=== PATIENT | female | born 1950 | race Caucasian/White ===

== ENCOUNTER 2017-06-11 17:57 | Observation (INO) | payer OTHER ==
[~2017-06-11] VITALS: Ht 157.5 cm; Wt 52.0 kg
[~2017-06-11 17:57] MED LIST: ASPEC81 PO; CLON0.5T3 PO; DIGO0.2518 PO; DOUNEB INH; EFFSR75 PO; FAMO20TA11 PO; HYDR200T5 PO; IPRA1AER2 PO; ISOS60TA25 PO; LISI-461 PO; METO50TA7 PO; MONT1TAB3 PO; ROSU40TA PO; ZCR80 PO
--- NOTE | 2017-06-11 18:27 | EMERGENCY ROOM VISIT NOTE ---
History Report prepared by Rayne: Yared Hall Under the Supervision of: Dr. Blane Garza M.D. First contact with patient: 18:03 Chief Complaint: CARDIAC ASSESSMENT Stated Complaint: CHF AND PNEUMONIA History of Present Illness The patient is a 66 year old female who presents to the Emergency Room after a referral from her primary care physician shortly prior to arrival. The patient' s states that she received a call from her PCP today after reviewing her chest x-ray that was taken at a routine check-up earlier today. The x-ray showed pneumonia and congestive heart failure. The patient notes that she has had a fever recently and did experience a short episode of chest pain today. This episode lasted 5-10 minutes before spontaneously resolving. She has been coughing persistently as well. She has a history of triple bypass surgery. She is currently taking Lasix, but has not changed these medications at all recently. Source of History: patient, family, spouse/significant other Onset: [place] prior to arrival Position: chest Quality: other (pneumonia/CHF) Associated Symptoms: + fevers, + cough, + chest pain Review of Systems See HPI for pertinent positives & negatives. A total of 10 systems reviewed and were otherwise negative. Past Medical & Surgical Surgical Problems: (1) H/O: hysterectomy (2) Hx of heart bypass surgery Old medical records were reviewed. Nurse's notes were reviewed and I agree with. Family History Omitted secondary to patient age. Social History Smoking Status: Current Every Day Smoker Alcohol Use: none Drug Use: none Marital Status: Housing Status: lives with family Occupation Status: retired Current/Historical Medications Scheduled Aspirin Enteric Coated (Ecotrin Or Generic), 81 MG PO DAILY Azithromycin (Zithromax Z-Enrique), 1 PKT PO UD Calcium Carbonate (Antacid) (Tums E-X 750), 1 TAB PO PRN Clonazepam (Klonopin), 0.5 TAB PO Q12 Clopidogrel Bisulfate (Clopidogrel), 75 MG PO DAILY Digoxin (Digox), 125 MCG PO DAILY Famotidine (Pepcid), 20 MG PO BID Fenofibrate (Tricor), 54 MG PO DAILY Fish Oil ([place]-3), 1 CAP PO DAILY Furosemide (Lasix), 20 MG PO BID Hydroxychloroquine Sulfate (Hydroxychloroquine Sulfat), 200 MG PO QPM Ipratropium-Albuterol (Combivent Respimat), 2 PUFFS PO TID Isosorbide Mononitrate (Isosorbide Mononitrate ER), 60 MG PO DAILY Lisinopril (Lisinopril), 10 MG PO DAILY Loratadine (Allergy Relief), 10 MG PO DAILY Metoprolol Succinate (Metoprolol Succinate ER), 75 MG PO DAILY Montelukast Sod (Montelukast Sodium), 10 MG PO QPM Rosuvastatin Calcium (Rosuvastatin Calcium), 40 MG PO DAILY Scheduled PRN Hydrocodone/Acetaminophen 10MG/325MG ([place] 10MG/325MG), 1-2 TABS PO Q6 PRN for Pain Ipratropium-Albuterol (Duoneb), 1 TREATMENT INH Q6 PRN for Wheezing Allergies Coded Allergies: Cephalosporins (Verified Allergy, Intermediate, RASH, 06/17/16) Penicillins (Verified Allergy, Mild, 06/17/16) Cephalexin (Verified Allergy, Unknown, HIVES, 06/17/16) Fexofenadine (Verified Allergy, Unknown, SEWLLING, 06/17/16) Prednisone (Verified Allergy, Unknown, SWELLING, 06/17/16) Physical Exam Vital Signs Date Time Temp Pulse Resp B/P (MAP) Pulse Ox O2 Delivery O2 Flow Rate FiO2 06/11/17 21:03 67 22 161/76 97 Room Air 06/11/17 20:12 68 20 125/79 95 Room Air 06/11/17 19:01 135/55 06/11/17 18:57 73 20 95 06/11/17 18:55 95 Room Air 06/11/17 18:53 138/68 06/11/17 18:15 83 06/11/17 17:59 36.8 85 18 130/61 92 Room Air Physical Exam General: Chronically ill appearing older female, NAD. There is an occasional hacking cough on exam. No increased work of breathing. HEENT: Normal cephalic atraumatic. Pupils are equal round and reactive to light. Extraocular movements are intact. Oropharynx is pink with moist mucous membranes. No swelling of the mouth lips or tongue. Neck: Supple with a midline trachea. No meningeal signs or stiffness, no JVD or bruits. No Stridor. Chest: There are crackles bilaterally. No wheezes or rhonchi. No increased work of breathing. Heart: regular rate and rhythm. Abdomen: Soft nontender, nondistended without rebound guarding or rigidity. Extremities: No cyanosis clubbing or edema. No calf tenderness or assymetry Spine/Back. Non tender to palpation. No CVA tenderness Skin: Good turgor without rashes. Neurologic exam: Cranial nerves two through 12 are intact. Motor and sensation are intact and symmetrical throughout. Medical Decision & Procedures ER Provider Diagnostic Interpretation: Radiology results as stated below per my review and radiologist interpretation: CHEST ONE VIEW PORTABLE CLINICAL HISTORY: Atypical chest pain COMPARISON STUDY: 10/11/2009 FINDINGS: The heart is the upper limits of normal in size. There are postsurgical changes of a midline sternotomy. There are hazy right basilar airspace opacities versus overlying breast tissue attenuation. A PA and lateral study might be of benefit in follow-up.[ Surgical clips project over the right upper lung zone. IMPRESSION: Hazy right basilar airspace opacities versus overlying breast tissue attenuation artifact. A PA and lateral study might be of benefit in follow-up. Electronically signed by: Bahman Oconnor M.D. 06/11/2017 6:36 PM Dictated Date/Time: 06/11/2017 6:34 PM Laboratory Results 06/11/17 18:36 Red Blood Count 4.93, Mean Corpuscular Volume 91.5, Mean Corpuscular Hemoglobin 32.0, Mean Corpuscular Hemoglobin Concent 35.0, Mean Platelet Volume 10.7, Neutrophils (%) (Auto) 67.0, Lymphocytes (%) (Auto) 25.8, Monocytes (%) (Auto) 5.7, Eosinophils (%) (Auto) 1.1, Basophils (%) (Auto) 0.4, Neutrophils # (Auto) 5.49, Lymphocytes # (Auto) 2.11, Monocytes # (Auto) 0.47, Eosinophils # (Auto) 0.09, Basophils # (Auto) 0.03 06/11/17 18:36 Test 06/11/17 18:36 06/11/17 18:50 06/11/17 18:51 White Blood Count 8.19 K/uL (4.8-10.8) Red Blood Count 4.93 M/uL (4.2-5.4) Hemoglobin 15.8 g/dL (12.0-16.0) Hematocrit 45.1 % (37-47) Mean Corpuscular Volume 91.5 fL (80-100) Mean Corpuscular Hemoglobin 32.0 pg (25-34) Mean Corpuscular Hemoglobin Concent 35.0 g/dl (32-36) Platelet Count 175 K/uL (130-400) Mean Platelet Volume 10.7 fL (7.4-10.4) Neutrophils (%) (Auto) 67.0 % Lymphocytes (%) (Auto) 25.8 % Monocytes (%) (Auto) 5.7 % Eosinophils (%) (Auto) 1.1 % Basophils (%) (Auto) 0.4 % Neutrophils # (Auto) 5.49 K/uL (1.4-6.5) Lymphocytes # (Auto) 2.11 K/uL (1.2-3.4) Monocytes # (Auto) 0.47 K/uL (0.11-0.59) Eosinophils # (Auto) 0.09 K/uL (0-0.5) Basophils # (Auto) 0.03 K/uL (0-0.2) RDW Standard Deviation 43.1 fL (36.4-46.3) RDW Coefficient of Variation 12.8 % (11.5-14.5) Immature Granulocyte % (Auto) 0.0 % Immature Granulocyte # (Auto) 0.00 K/uL (0.00-0.02) Prothrombin Time 11.3 SECONDS (9.0-12.0) Prothromb Time International Ratio 1.1 (0.9-1.1) Activated Partial Thromboplast Time 26.6 SECONDS (21.0-31.0) Partial Thromboplastin Ratio 1.0 Anion Gap 7.0 mmol/L (3-11) Est Creatinine Clear Calc Drug Dose 35.9 ml/min Estimated GFR () 50.2 Estimated GFR (Non- 43.3 BUN/Creatinine Ratio 13.5 (10-20) Calcium Level 10.1 mg/dl (8.5-10.1) Magnesium Level 2.3 mg/dl (1.8-2.4) Total Bilirubin 0.7 mg/dl (0.2-1) Direct Bilirubin 0.2 mg/dl (0-0.2) Aspartate Amino Transf (AST/SGOT) 13 U/L (15-37) Alanine Aminotransferase (ALT/SGPT) 20 U/L (12-78) Alkaline Phosphatase 70 U/L (45-117) Total Creatine Kinase 52 U/L (26-192) Creatine Kinase MB 0.6 ng/ml (0.5-3.6) Creatine Kinase MB Ratio 1.2 (0-3.0) Troponin I < 0.015 ng/ml (0-0.045) Total Protein 8.0 gm/dl (6.4-8.2) Albumin 4.5 gm/dl (3.4-5.0) Lipase 185 U/L (73-393) Digoxin Level 1.2 ng/ml (0.8-2.0) Bedside Troponin I < 0.030 ng/ml (0-0.045) AO-Cry-K-Type Natriuretic Peptide 354 pg/ml (0-900) Bedside Lactic Acid Venous 0.80 mmol/L (0.90-1.70) Laboratory studies as stated above per my review. Medications Administered Medications (Trade) Dose Ordered Sig/Keri Route Start Time Stop Time Status Last Admin Dose Admin Levofloxacin (Levaquin / D5W) 750 mg NOW STAT IV 06/11/17 19:32 06/11/17 19:33 DC 06/11/17 19:37 750 MG ECG Indication: chest pain Rate (beats per minute): 69 Rhythm: sinus with SA Findings: other (Non-specific Intraventricular delay, Lateral ST changes) Comparison ECG Date: 10/15/2008 Change: no significant change ED Course 1805: Past medical records reviewed. The patient was evaluated in room C5, and a complete history and physical examination were performed. 1931: Ordered Levofloxacin 750 mg IV. 1937: I checked on the patient at this time. She looks well. 1942: I discussed the case with Dr. Carlton [facility] Hospitalist at this time. He will evaluate the patient for further treatment. Medical Decision Differential Diagnosis includes; CHF, pneumonia, acute coronary syndrome, arrhythmia, and pulmonary embolism. This patient comes in as described above. She was placed in room C5. She was sent over by Dr. Oseguera her sightseeing guide after apparently having a chest x- ray in the office yesterday which showed CHF and/or pneumonia. She's been coughing a lot lately on exam besides coughing. she does not appear to be any significant respiratory stress. She has had no fever and she's not hypoxemic. IV access was established and blood work was obtained including blood cultures. Chest x-ray and EKG were also obtained. Chest x-ray does show what appears to be a pneumonia in the right base. The report from yesterday in the doctor's office also showed pneumonia with possibly some CHF superimposed. EKG shows no acute ischemic changes or significant arrhythmia. There are no acute electrolyte or metabolic abnormalities. She has nothing to suggest sepsis at this point. Blood cultures have been obtained. I did give the patient IV Levaquin. I have consulted Dr. Sanchez to see the patient for possible admission given her pneumonia and multiple comorbidities. Medication Reconcilliation Current Medication List: was personally reviewed by me Blood Pressure Screening Patient's blood pressure: Normal blood pressure Blood pressure disposition: Did not require urgent referral Consults Time Called: 1939 Consulting Physician: Dr. Bianka Manjarrez Returned Call: 1942 I discussed the case with Dr. Bianka Manjarrez at this time. He will evaluate the patient for further treatment. Impression Primary Impression: Pneumonia Scribe Attestation The scribe's documentation has been prepared under my direction and personally reviewed by me in its entirety. I confirm that the note above accurately reflects all work, treatment, procedures, and medical decision making performed by me. Departure Information Dispostion Being Evaluated By Hospitalist Referrals No Doctor, Assigned (PCP) Patient Instructions My [facility]
--- NOTE | 2017-06-11 18:37 | DIAGNOSTIC IMAGING REPORT ---
CHEST ONE VIEW PORTABLE CLINICAL HISTORY: Atypical chest pain COMPARISON STUDY: 10/11/2009 FINDINGS: The heart is the upper limits of normal in size. There are postsurgical changes of a midline sternotomy. There are hazy right basilar airspace opacities versus overlying breast tissue attenuation. A PA and lateral study might be of benefit in follow-up.[ Surgical clips project over the right upper lung zone. IMPRESSION: Hazy right basilar airspace opacities versus overlying breast tissue attenuation artifact. A PA and lateral study might be of benefit in follow-up. Electronically signed by: Bahman Oconnor M.D. 06/11/2017 6:36 PM Dictated Date/Time: 06/11/2017 6:34 PM
[2017-06-11] MEDS ORDERED: ASPI81TA21 PO (18:41)
[2017-06-11] MEDS ORDERED: PLQ200 PO (18:41)
[2017-06-11] MEDS ORDERED: HYDR-4079 PO ×2 (18:41→23:05)
[2017-06-11] MEDS ORDERED: IPRASOL4 INH (18:41)
[2017-06-11] MEDS ORDERED: DIGO0.2519 PO (18:41)
[2017-06-11] MEDS ORDERED: AZITTAB PO (18:42)
[2017-06-11] MEDS ORDERED: TPRSR/50 PO (18:42)
[2017-06-11] MEDS ORDERED: LORA-339 PO (18:42)
[2017-06-11] MEDS ORDERED: PLV75 PO (18:42)
[2017-06-11] MEDS ORDERED: ALEN70TA4 PO (18:42)
[2017-06-11] MEDS ORDERED: SNG10 PO (18:42)
[2017-06-11] MEDS ORDERED: LSX20 PO (18:42)
[2017-06-11] MEDS ORDERED: FENO54TA PO (18:42)
[2017-06-11] MEDS ORDERED: ISOS-10 PO (18:42)
[2017-06-11] MEDS ORDERED: LISI-461 PO (18:42)
[2017-06-11] MEDS ORDERED: FAMO1TAB47 PO (18:42)
[2017-06-11] MEDS ORDERED: ROSU40TA18 PO (18:42)
[2017-06-11 19:05] LABS: BASO % 0.4 %; BASO ABS # 0.03 K/uL (0-0.2); COMPLETE YES; EOS % 1.1 %; HEMATOCRIT 45.1 % (37-47); LYMPH % 25.8 %; LYMPH ABS # 2.11 K/uL (1.2-3.4); MEAN CELL VOLUME 91.5 fL (80-100); MEAN PLATELET VOLUME 10.7 fL (7.4-10.4); MONO % 5.7 %; PLATELET COUNT 175 K/uL (130-400); RED BLOOD COUNT 4.93 M/uL (4.2-5.4); WHITE BLOOD COUNT 8.19 K/uL (4.8-10.8)
[2017-06-11 19:08] LABS: POINT OF CARE PRO-BNP 354 pg/ml (0-900); POINT OF CARE TROPONIN I < 0.030 ng/ml (0-0.045)
[2017-06-11 19:08] LABS: INR 1.1 (0.9-1.1); PROTHROMBIN TIME (PATIENT) 11.3 SECONDS (9.0-12.0)
[2017-06-11 19:14] LABS: ALT/SGPT 20 U/L (12-78); AST/SGOT 13 U/L (15-37); BLOOD UREA NITROGEN 18 mg/dl (7-18); BUN/CREATININE RATIO 13.5 (10-20); CALCIUM 10.1 mg/dl (8.5-10.1); CARBON DIOXIDE 27 mmol/L (21-32); CHLORIDE 104 mmol/L (98-107); GLUCOSE 98 mg/dl (70-99); POTASSIUM 4.1 mmol/L (3.5-5.1); SODIUM 138 mmol/L (136-145)
[2017-06-11 19:19] LABS: ALKALINE PHOSPHATASE 70 U/L (45-117); CKMB/CK RATIO 1.2 (0-3.0)
[2017-06-11] MEDS ORDERED: LEVAQUIN 750MG / 150ML D5W IV STA (19:32)
[2017-06-11 20:33] LABS: MAGNESIUM 2.3 mg/dl (1.8-2.4)
[2017-06-11] MEDS ORDERED: HYDROCODONE/ACETAMI 10/325 TAB PO PRN (22:30)
[2017-06-11] MEDS ORDERED: ACETAMINOPHEN 325 MG TAB PO PRN (22:30)
[2017-06-11] MEDS ORDERED: ALBUT/IPRATROP 3MG/0.5MG NEB 3 ML VIAL INH PRN (22:30)
[2017-06-11 22:35] VITALS: O2SAT 96; Ht 157.5 cm; Wt 52.0 kg
[2017-06-11] MEDS ORDERED: SODIUM CHLORIDE 0.9% 500ML 500 ML IV ONE (23:00)
[2017-06-11] MEDS ORDERED: CLOP1TAB15 PO (23:05)
[2017-06-11] MEDS ORDERED: CALC1CHW43 PO (23:05)
[2017-06-11] MEDS ORDERED: FURO-85 PO (23:05)
[2017-06-11] MEDS ORDERED: OMEG10007 PO (23:05)
[2017-06-11 23:35] VITALS: BP 137/76; PULSE 75; TEMP 36.7; O2SAT 95
[2017-06-11] MEDS: CLONAZEPAM 0.5 MG TAB PO SCH (23:57)
[2017-06-12] MEDS ORDERED: IV FLUIDS COMPLETED PRN (04:15)
--- NOTE | 2017-06-12 05:27 | HISTORY & PHYSICAL EXAMINATION ---
DATE OF ADMISSION: 06/11/2017 PRIMARY CARE DOCTOR: Bessy Mclean PA-C. CHIEF COMPLAINT: Abnormal x-ray, sent by doctor. HISTORY OF PRESENT ILLNESS: History obtained from patient and records. Medical history significant for chronic systolic heart failure secondary to ischemic cardiomyopathy, EF of 35-40% from a 2D echo last July 2012, PVD status post surgery, coronary artery disease status post CABG, history of AVR, history of CVA, PSVT as per records, hypertension, hyperlipidemia, rheumatoid arthritis as per records, COPD, ongoing tobacco abuse, Recent confinement last October 2008 for COPD exacerbation. [place] [facility] [place] for productive cough, nasal congestion. Sick grandchild. Patient denies aspiration. No unusual fluid retention or weight gain. Good appetite. Impression was complicated, bronchitis versus community acquired pneumonia. Patient prescribed azithromycin, improved cough symptoms. Chest x-ray done outpatient. Chest x-ray officially read as pneumonia, right lung base, tiny bilateral pleural effusions, mild interstitial edema today. Patient sent to the Emergency Room by correctional treatment specialist's office. At the ER, the patient received Levaquin. MEDICAL HISTORY: As above. SURGERIES: Vascular procedures, CABG, AVR, cholecystectomy, hysterectomy. HOME MEDICATIONS: Include azithromycin, aspirin, Tums, Klonopin, Plavix, digoxin, Tricor, Lasix, Pepcid, Vicodin, hydroxychloroquine, DuoNebs, Combivent, isosorbide mononitrate, loratadine, lisinopril, metoprolol, montelukast, rosuvastatin. ALLERGIES: CEPHALEXIN, PREDNISONE, FEXOFENADINE, CEPHALOSPORIN, PENICILLIN. FAMILY HISTORY: Diabetes, heart disease. PERSONAL AND SOCIAL HISTORY: Ongoing tobacco abuse, 6 cigarettes a day, no chronic intake of alcoholic beverages. REVIEW OF SYSTEMS: As per HPI, all other ROS negative. PHYSICAL EXAMINATION: VITAL SIGNS: Blood pressure noted to be 135/67, pulse rate 89, RR 20, temperature 36.7, sats 95 on room air. GENERAL: Noted to be pleasant, no respiratory distress, dysarthric. SKIN: Normal color. HEENT: [place] palpebral conjunctivae. Dry mucosa. NECK: No JVD. Supple. CHEST: Decreased breath sounds. HEART: RRR ABDOMEN: Soft. EXTREMITIES: No edema, no tenderness. NEUROLOGIC: No gross focality except dysarthria. LABS: Hemoglobin was noted to be 15.8, hematocrit 45.1, white blood cells 8.19, platelets 175. Sodium 138, potassium 4.1, chloride 27, BUN 18, creatinine 1.3, glucose was noted to be 98. Chest x-ray, hazy right basilar airspace opacity. EKG as per my interpretation 70, normal sinus rhythm, some downsloping ST depression in lateral leads, QTc 400. ASSESSMENT: 1. Acute renal failure possibly secondary to meds, respiratory illness. 2. Community-acquired pneumonia left, no sepsis improved on outpatient azithromycin course. 3. Chronic obstructive pulmonary disease, ongoing tobacco use. No evidence of exacerbation. 4. Chronic systolic heart failure secondary to ischemic cardiomyopathy, EF of 35 -40%. Patient slightly on the dry side. 5. History of peripheral vascular disease, status post surgery. 6. hx aortic valve replacement. 7. History rheumatoid arthritis, stable on Plaquenil. PLAN: Observation GMF baseline UA, monitor creatinine response to gentle IV hydration. Appropriate to hold GIN inhibitor, home diuretics for now until creatinine at baseline. C Complete home Z-Enrique prescribed by patient's correctional treatment specialist outpatient. Nicotine patch. PT, OT eval. Home in the morning if kidney function improved and patient comfortable. DVT prophylaxis. Heparin subQ. DNR. MTDD
[2017-06-12] MEDS ORDERED: HEPARIN SOD 5000 UNIT/0.5 ML CARP SQ SCH (06:00)
[2017-06-12 06:06] LABS: BASO % 0.6 %; BASO ABS # 0.06 K/uL (0-0.2); COMPLETE YES; EOS % 0.8 %; HEMATOCRIT 42.2 % (37-47); IG% 0.3 %; MEAN CELL VOLUME 92.7 fL (80-100); MEAN CORPUSCULAR HEMOGLOBIN 32.5 pg (25-34); MEAN CORPUSCULAR HGB CONC 35.1 g/dl (32-36); MEAN PLATELET VOLUME 11.1 fL (7.4-10.4); MONO % 10.1 %; NEUT % 64.2 %; PLATELET COUNT 145 K/uL (130-400); RED BLOOD COUNT 4.55 M/uL (4.2-5.4); WHITE BLOOD COUNT 9.58 K/uL (4.8-10.8)
[2017-06-12 06:38] LABS: BUN/CREATININE RATIO 12.7 (10-20); CALCIUM 9.6 mg/dl (8.5-10.1); CREATININE 1.1 mg/dl (0.60-1.20); POTASSIUM 4.1 mmol/L (3.5-5.1)
[2017-06-12 07:01] VITALS: BP 130/75; PULSE 67; TEMP 37; O2SAT 98
[2017-06-12] MEDS ORDERED: ROSUVASTATIN CALCIUM 20 MG TAB PO SCH (08:00)
[2017-06-12] MEDS ORDERED: FAMOTIDINE 20 MG TAB PO SCH (08:00)
[2017-06-12] MEDS: CLONAZEPAM 0.5 MG TAB PO SCH (08:42)
[2017-06-12] MEDS ORDERED: NICOTINE 7 MG/24 HR TDSY TD SCH (09:00)
[2017-06-12] MEDS ORDERED: FENOFIBRATE 48 MG TAB PO SCH (09:00)
[2017-06-12] MEDS ORDERED: IPRATROPIUM BROMIDE/ALBUTEROL respimat INH INH SCH (09:00)
[2017-06-12] MEDS ORDERED: ISOSORBIDE MONONITRATE 60 MG TABCR PO SCH (09:00)
[2017-06-12] MEDS ORDERED: METOPROLOL SUCC 25MG EXT REL TAB PO SCH (09:00)
[2017-06-12] MEDS ORDERED: CLOPIDOGREL BISULFATE 75 MG TAB PO SCH (09:00)
[2017-06-12] MEDS ORDERED: ASPIRIN 81 MG ECTAB PO SCH (09:00)
[2017-06-12] MEDS ORDERED: AZITHROMYCIN 250 MG TAB PO SCH (09:00)
[2017-06-12] MEDS ORDERED: ENOXAPARIN 30 MG/0.3 ML SYR SQ SCH (09:00)
[2017-06-12 10:55] LABS: URINE APPEARANCE CLEAR (CLEAR); URINE BILIRUBIN NEG (NEG); URINE COLOR YELLOW; URINE NITRITE NEG (NEG); URINE SPECIFIC GRAVITY 1.011 (1.000-1.030); UROBILINOGEN NEG (NEG); ZZUR CULT IF INDIC CLEAN CATCH NO
[2017-06-12 11:02] LABS: MANUAL MICROSCOPIC REQUIRED? NO; REVIEW REQ? NO
--- NOTE | 2017-06-12 11:32 | Progress Note ---
Internal Med Progress Note Date of Service: Jun 12, 2017. Provider Documentation: SUBJECTIVE: Seen and examined at bedside. States having only mild intermittent cough. Eager to get discharged Denies chest pain, SOB. No signs of fluid overload Also denies any urinary symptoms Afebrile, Saturating 98% on RA OBJECTIVE: Vital Signs-as noted below Physical Exam: General Appearance:Moderately built and nourished, no apparent distress Head: normocephalic, Atraumatic Eyes: normal inspection, EOMI, PERRL Neck: supple, Trachea midline Respiratory/Chest: Decreased breath sounds on right lower base, CTA Cardiovascular: S1, S2, No murmur Abdomen/GI:Soft, Non tender, Bowel sounds present Extremities/Musculoskelatal:normal inspection, no edema Neurologic/Psych:grossly no focal neurological deficits Skin: normal color, warm Lab data as noted below. ASSESSMENT & PLAN: Acute renal failure Cr levels back to baseline S/P IV fluids Lisinopril and lasix held during hospitalization monitor renal function Community-acquired pneumonia No signs of sepsis Saturating well on RA Denies SOB, chest pain Clinically improving with Z-pack Blood cultures pending Chronic obstructive pulmonary disease, ongoing tobacco use. No signs of exacerbation continue home inhalers Nicotine patch. Chronic systolic heart failure secondary to ischemic cardiomyopathy, EF of 35-40 %. No signs of volume overload clinically looks dry H/O peripheral vascular disease, status post surgery. Continue ASA, Plavix H/O Aortic valve replacement. Stable Follow with your sign writer hand as outpatient DVT Px: Heparin SQ Code Status: DNR Disposition: PT/OT ordered Patient refuses to wait for PT/OT evals and prefers to be discharged home ( Family agrees with the plan) Follow up with your primary care physician Bessy Mclean PA-C in 1 week as advised Follow up with your sign writer hand in 1 week (Patient reports she already has an appointment) Complete the antibiotic course as prescribed by her sign writer hand Seek immediate medical attention if your symptoms reoccur or worsen Get blood test (basic metabolic panel) checked on 06/14/17 and follow up wit your doctor with results Vital Signs: Date Time Temp Pulse Resp B/P (MAP) Pulse Ox O2 Delivery O2 Flow Rate FiO2 06/12/17 08:00 Room Air 06/12/17 07:01 37.0 67 20 130/75 (93) 98 Room Air 8/5/17 00:00 Room Air 06/11/17 23:35 36.7 75 20 137/76 (96) 95 Room Air 06/11/17 22:35 96 Room Air 06/11/17 22:14 68 22 139/76 96 06/11/17 21:03 67 22 161/76 97 Room Air 06/11/17 20:12 68 20 125/79 95 Room Air 06/11/17 19:01 135/55 06/11/17 18:57 73 20 95 06/11/17 18:55 95 Room Air 06/11/17 18:53 138/68 06/11/17 18:15 83 06/11/17 17:59 36.8 85 18 130/61 92 Room Air Lab Results: Results Past 24 Hours Test 06/11/17 18:12 06/11/17 18:36 06/11/17 18:50 06/11/17 18:51 Range/Units Creatine Kinase MB Ratio 1.2 0-3.0 White Blood Count 8.19 4.8-10.8 K/uL Red Blood Count 4.93 4.2-5.4 M/uL Hemoglobin 15.8 12.0-16.0 g/dL Hematocrit 45.1 37-47 % Mean Corpuscular Volume 91.5 80-100 fL Mean Corpuscular Hemoglobin 32.0 25-34 pg Mean Corpuscular Hemoglobin Concent 35.0 32-36 g/dl Platelet Count 175 130-400 K/uL Mean Platelet Volume 10.7 7.4-10.4 fL Neutrophils (%) (Auto) 67.0 % Lymphocytes (%) (Auto) 25.8 % Monocytes (%) (Auto) 5.7 % Eosinophils (%) (Auto) 1.1 % Basophils (%) (Auto) 0.4 % Neutrophils # (Auto) 5.49 1.4-6.5 K/uL Lymphocytes # (Auto) 2.11 1.2-3.4 K/uL Monocytes # (Auto) 0.47 0.11-0.59 K/uL Eosinophils # (Auto) 0.09 0-0.5 K/uL Basophils # (Auto) 0.03 0-0.2 K/uL RDW Standard Deviation 43.1 36.4-46.3 fL RDW Coefficient of Variation 12.8 11.5-14.5 % Immature Granulocyte % (Auto) 0.0 % Immature Granulocyte # (Auto) 0.00 0.00-0.02 K/uL Prothrombin Time 11.3 9.0-12.0 SECONDS Prothromb Time International Ratio 1.1 0.9-1.1 Activated Partial Thromboplast Time 26.6 21.0-31.0 SECONDS Partial Thromboplastin Ratio 1.0 Sodium Level 138 136-145 mmol/L Potassium Level 4.1 3.5-5.1 mmol/L Chloride Level 104 98-107 mmol/L Carbon Dioxide Level 27 21-32 mmol/L Anion Gap 7.0 3-11 mmol/L Blood Urea Nitrogen 18 7-18 mg/dl Creatinine 1.30 0.60-1.20 mg/dl Est Creatinine Clear Calc Drug Dose 35.9 ml/min Estimated GFR () 50.2 Estimated GFR (Non- 43.3 BUN/Creatinine Ratio 13.5 10-20 Random Glucose 98 70-99 mg/dl Calcium Level 10.1 8.5-10.1 mg/dl Magnesium Level 2.3 1.8-2.4 mg/dl Total Bilirubin 0.7 0.2-1 mg/dl Direct Bilirubin 0.2 0-0.2 mg/dl Aspartate Amino Transf (AST/SGOT) 13 15-37 U/L Alanine Aminotransferase (ALT/SGPT) 20 12-78 U/L Alkaline Phosphatase 70 45-117 U/L Total Creatine Kinase 52 26-192 U/L Creatine Kinase MB 0.6 0.5-3.6 ng/ml Troponin I < 0.015 0-0.045 ng/ml Total Protein 8.0 6.4-8.2 gm/dl Albumin 4.5 3.4-5.0 gm/dl Lipase 185 73-393 U/L Digoxin Level 1.2 0.8-2.0 ng/ml Bedside Troponin I < 0.030 0-0.045 ng/ml YF-Xub-[id number]-Type Natriuretic Peptide 354 0-900 pg/ml Bedside Lactic Acid Venous 0.80 0.90-1.70 mmol/L Test 06/12/17 05:06 06/12/17 10:40 Range/Units White Blood Count 9.58 4.8-10.8 K/uL Red Blood Count 4.55 4.2-5.4 M/uL Hemoglobin 14.8 12.0-16.0 g/dL Hematocrit 42.2 37-47 % Mean Corpuscular Volume 92.7 80-100 fL Mean Corpuscular Hemoglobin 32.5 25-34 pg Mean Corpuscular Hemoglobin Concent 35.1 32-36 g/dl Platelet Count 145 130-400 K/uL Mean Platelet Volume 11.1 7.4-10.4 fL Neutrophils (%) (Auto) 64.2 % Lymphocytes (%) (Auto) 24.0 % Monocytes (%) (Auto) 10.1 % Eosinophils (%) (Auto) 0.8 % Basophils (%) (Auto) 0.6 % Neutrophils # (Auto) 6.14 1.4-6.5 K/uL Lymphocytes # (Auto) 2.30 1.2-3.4 K/uL Monocytes # (Auto) 0.97 0.11-0.59 K/uL Eosinophils # (Auto) 0.08 0-0.5 K/uL Basophils # (Auto) 0.06 0-0.2 K/uL RDW Standard Deviation 43.9 36.4-46.3 fL RDW Coefficient of Variation 12.9 11.5-14.5 % Immature Granulocyte % (Auto) 0.3 % Immature Granulocyte # (Auto) 0.03 0.00-0.02 K/uL Sodium Level 144 136-145 mmol/L Potassium Level 4.1 3.5-5.1 mmol/L Chloride Level 111 98-107 mmol/L Carbon Dioxide Level 27 21-32 mmol/L Anion Gap 6.0 3-11 mmol/L Blood Urea Nitrogen 14 7-18 mg/dl Creatinine 1.10 0.60-1.20 mg/dl Est Creatinine Clear Calc Drug Dose 40.9 ml/min Estimated GFR () 61.4 Estimated GFR (Non- 53.0 BUN/Creatinine Ratio 12.7 10-20 Random Glucose 97 70-99 mg/dl Calcium Level 9.6 8.5-10.1 mg/dl Urine Color YELLOW Urine Appearance CLEAR CLEAR Urine pH 8.0 4.5-7.5 Urine Specific [place] 1.011 1.000-1.030 Urine Protein NEG NEG Urine Glucose (UA) NEG NEG Urine Ketones NEG NEG Urine Occult Blood NEG NEG Urine Nitrite NEG NEG Urine Bilirubin NEG NEG Urine Urobilinogen NEG NEG Urine Leukocyte Esterase NEG NEG Microbiology Results 06/11/17 Blood Culture, Received Pending 06/11/17 Blood Culture, Received Pending
--- NOTE | 2017-06-12 12:16 | Discharge Summary ---
Discharge Summary Date of Service Jun 12, 2017. Discharge Summary Admission Date: Jun 11, 2017 at 21:56 Discharge Date: Jun 12, 2017 Discharge Disposition: Home Principal Diagnosis: ARF, CAP Procedures: CXR: Hazy right basilar airspace opacities versus overlying breast tissue attenuation artifact. A PA and lateral study might be of benefit in follow-up. Consultations: None Pending Studies/Follow-Up: Follow up with your primary care physician Bessy Mclean PA-C in 1 week as advised Follow up with your card feeder in 1 week Complete the antibiotic course as prescribed by her card feeder Seek immediate medical attention if your symptoms reoccur or worsen Get blood test (basic metabolic panel) checked on 06/14/17 and follow up wit your doctor with results Your blood cultures are pending at time of discharge. Follow up wit your doctor regarding results Medication Reconciliation Continued Medications: Aspirin Enteric Coated (Ecotrin Or Generic) 81 Mg Tab 81 MG PO DAILY, TAB Azithromycin (Zithromax Z-Enrique) 250 Mg Tab 1 PKT PO UD for 5 Days, #6 TAB Calcium Carbonate (Antacid) (Tums E-X 750) 750 Mg Chw 1 TAB PO PRN Clonazepam (Klonopin) 0.5 Mg Tab 0.5 TAB PO Q12 Clopidogrel Bisulfate (Clopidogrel) 75 Mg Tab 75 MG PO DAILY, #30 Digoxin (Digox) 250 Mcg Tab 125 MCG PO DAILY, #15 Famotidine (Pepcid) 20 Mg Tab 20 MG PO BID Fenofibrate (Tricor) 54 Mg Tab 54 MG PO DAILY, #30 Fish Oil ([place]ctor-3) 1 Ea Cap 1 CAP PO DAILY, CAP Furosemide (Lasix) 20 Mg Tab 20 MG PO BID, TAB Hydrocodone/Acetaminophen 10MG/325MG ([place] 10MG/325MG) Tab 1-2 TABS PO Q6 PRN for Pain, TAB PRN PAIN Hydroxychloroquine Sulfate (Hydroxychloroquine Sulfat) 200 Mg Tab 200 MG PO QPM, #30 Ipratropium-Albuterol (Combivent Respimat) 1 Aer Aer 2 PUFFS PO TID, #4 Ipratropium-Albuterol (Duoneb) 3 Ml Nebu 1 TREATMENT INH Q6 PRN for Wheezing, INHA Isosorbide Mononitrate (Isosorbide Mononitrate ER) 60 Mg Tabcr 60 MG PO DAILY, #30 Lisinopril (Lisinopril) 10 Mg Tab 10 MG PO DAILY, #30 Loratadine (Allergy Relief) 10 Mg Tab 10 MG PO DAILY, #30 Metoprolol Succinate (Metoprolol Succinate ER) 50 Mg Tabcr 75 MG PO DAILY, #45 Montelukast Sod (Montelukast Sodium) 10 Mg Tab 10 MG PO QPM, #30 Rosuvastatin Calcium (Rosuvastatin Calcium) 40 Mg Tab 40 MG PO DAILY, #30 Admission Information HPI (per Admitting provider): CHIEF COMPLAINT: Abnormal x-ray sent by doctor. HISTORY OF PRESENT ILLNESS: History obtained from patient records. Medical history significant for chronic systolic heart failure secondary to ischemic cardiomyopathy, EF of 30-35% from a 2D echo last July 2012, TAA status post surgery, coronary artery disease status post CABG, history of AVR, history of CVA, PVD, hypertension, hyperlipidemia, rheumatoid arthritis as per records, PSVT, ongoing tobacco abuse, COPD. Recent confinement last October 2008 for COPD exacerbation. The patient seen by card feeder yesterday for productive cough, nasal congestion. ____ was complicated, bronchitis versus community acquired pneumonia. Chest x-ray requested outpatient. The patient prescribed azithromycin, improved cough symptoms. Good appetite. Chest x-ray officially read as pneumonia, right lung base. The patient denies aspiration. Tiny bilateral pleural effusions, mild interstitial edema. The patient sent to the Emergency Room, the patient received Levaquin. No unusual weight gain as per patient. Physical Exam (per Admitting): PHYSICAL EXAMINATION: VITAL SIGNS: Blood pressure noted to be 135/67, pulse rate ____, RR 20, temperature 36.7, sats 95 on room air. GENERAL: Noted to be pleasant, no respiratory distress, dysarthric. SKIN: Normal color. HEENT: [place] palpebral conjunctivae. Dry mucosa. NECK: No JVD. Supple. CHEST: Decreased breath sounds. HEART: Diminished S1, S2. ABDOMEN: Soft. EXTREMITIES: No edema, no tenderness. NEUROLOGIC: No gross focality except dysarthria. Hospital Course Acute renal failure Cr levels back to baseline S/P IV fluids Lisinopril and lasix held during hospitalization monitor renal function Community-acquired pneumonia No signs of sepsis Saturating well on RA Denies SOB, chest pain Clinically improving with Z-pack Blood cultures pending Chronic obstructive pulmonary disease, ongoing tobacco use. No signs of exacerbation continue home inhalers Nicotine patch. Chronic systolic heart failure secondary to ischemic cardiomyopathy, EF of 35-40 %. No signs of volume overload clinically looks dry H/O peripheral vascular disease, status post surgery. Continue ASA, Plavix H/O Aortic valve replacement. Stable Follow with your card feeder as outpatient DVT Px: Heparin SQ Code Status: DNR Disposition: PT/OT ordered Patient refuses to wait for PT/OT evals and prefers to be discharged home ( Family agrees with the plan) Follow up with your primary care physician Bessy Mclean PA-C in 1 week as advised Follow up with your card feeder in 1 week (Patient reports she already has an appointment) Complete the antibiotic course as prescribed by her card feeder Seek immediate medical attention if your symptoms reoccur or worsen Get blood test (basic metabolic panel) checked on 06/14/17 and follow up wit your doctor with results Total time spent on discharge = This includes examination of the patient, discharge planning, medication reconciliation, and communication with other providers. Discharge Instructions Discharge Instructions Date of Service Jun 12, 2017. Admission Reason for Admission: ARF Discharge Discharge Diagnosis / Problem: ARF, CAP Discharge Goals Goal(s): Decrease discomfort, Improve function Activity Recommendations Activity Limitations: resume your previous activity Exercise/Sports Limitations: as tolerated . Instructions / Follow-Up Instructions / Follow-Up Follow up with your primary care physician Bessy Mclean PA-C in 1 week as advised Follow up with your card feeder in 1 week Complete the antibiotic course as prescribed by her card feeder Seek immediate medical attention if your symptoms reoccur or worsen Get blood test (basic metabolic panel) checked on 06/14/17 and follow up wit your doctor with results Your blood cultures are pending at time of discharge. Follow up wit your doctor regarding results Current Hospital Diet Patient's current hospital diet: AHA Diet (Heart Healthy) Discharge Diet Recommended Diet: AHA Diet (Heart Healthy) Pending Studies Studies pending at discharge: yes List of pending studies: Blood cultres Medical Emergencies . Who to Call and When: Medical Emergencies: If at any time you feel your situation is an emergency, please call 911 immediately. . Non-Emergent Contact Non-Emergency issues call your: Primary Care Provider, Booking Manager Call Non-Emergent contact if: you have a fever, your pain is not controlled, your pain is worsening, your pain is unusual for you, you have any medication questions If your cough is worsening. If your develop chest pain, shortness of breath, fever . . "Provider Documentation" section prepared by Josep Brink. . VTE Core Measure Inpt VTE Proph given/why not?: Unfractionated heparin SQ
[2017-06-12 12:48] VITALS: BP 130/75; PULSE 67; TEMP 37; O2SAT 98
[2017-06-12] MEDS ORDERED: DIGOXIN 0.25 MG TAB PO SCH (16:00)
[2017-06-12] MEDS ORDERED: HYDROXYCHLOROQUINE SULFATE 200 MG TAB PO SCH (21:00)
[2017-06-12] MEDS ORDERED: MONTELUKAST SOD 10 MG TAB PO SCH (21:00)
== END 2017-06-12 13:10 | disposition home or self-care (01) ==
LOC: C.EDB 17:59 → C.4E 21:56 → ENRESERV 22:03
PROVIDERS: ADMIT Internal Medicine; ATTEND Internal Medicine
DX: J96.00 Acute respiratory failure, unspecified whether with hypoxia or hypercapnia (principal); J18.9 Pneumonia, unspecified organism; I25.10 Atherosclerotic heart disease of native coronary artery without angina pectoris; I47.1 Supraventricular tachycardia; I11.0 Hypertensive heart disease with heart failure; I50.22 Chronic systolic (congestive) heart failure; I25.5 Ischemic cardiomyopathy; E78.5 Hyperlipidemia, unspecified; J44.9 Chronic obstructive pulmonary disease, unspecified; I73.9 Peripheral vascular disease, unspecified; M06.9 Rheumatoid arthritis, unspecified; F17.210 Nicotine dependence, cigarettes, uncomplicated; Z86.73 Personal history of transient ischemic attack (TIA), and cerebral infarction without residual deficits; Z95.1 Presence of aortocoronary bypass graft; Z95.2 Presence of prosthetic heart valve; Z79.02 Long term (current) use of antithrombotics/antiplatelets; Z79.82 Long term (current) use of aspirin; Z79.899 Other long term (current) drug therapy

== ENCOUNTER 2020-12-15 10:51 | Inpatient (IN) ==
--- OUTSIDE RECORDS SUMMARY | 2020-12-15 10:53 | External Medical Summary | Continuity of Care Document ---
:1950 Author Name Mina Valentino Address Unavailable Unavailable , Care Team Providers Name Role Phone Hardeep CID Unavailable [email or web address] PCP, NO Unavailable Unavailable Problems Active medical history not documented Allergies and Adverse Reactions Allergy history not documented Medications Medications not documented Procedures Procedures not documented Immunizations Immunizations not documented Plan of Treatment Planned Observations Planned Goals not documented Results No Known Results Results not documented
--- OUTSIDE RECORDS SUMMARY | 2020-12-15 10:53 | External Medical Summary | Continuity of Care Document ---
:1950 Author Name Mina Valentino Address Unavailable Unavailable , Care Team Providers Name Role Phone Hardeep CID Unavailable [email or web address] PCP, NO Unavailable Unavailable Problems Active medical history not documented Allergies and Adverse Reactions Allergy history not documented Medications Medications not documented Procedures Procedures not documented Immunizations Immunizations not documented Plan of Treatment Planned Observations Planned Goals not documented Results No Known Results Results not documented
[2020-12-15] MEDS ORDERED: SODIUM CHLORIDE 0.9% 1000ML 1,000 ML IV STA (11:28)
[2020-12-15 11:58] LABS: Basophils # (auto) 0.01 K/uL (0-0.2); Basophils % (auto) 0.1 %; Hematocrit (blood only) 48.4 % (37-47); Hemoglobin 16.4 g/dL (12.0-16.0); Immature Granulocytes # (auto) 0.04 K/uL (0.00-0.02); Immature Granulocytes % (auto) 0.4 %; Lymphocytes % (auto) 12.2 %; Mean Corpuscular Hemoglobin 31.7 pg (25-34); Mean Corpuscular Hgb Conc 33.9 g/dL (32-36); Mean Corpuscular Volume 93.4 fL (80-100); Mean Platelet Volume 11.7 fL (7.4-10.4); Monocytes # (auto) 1.04 K/uL (0.11-0.59); Monocytes % (auto) 9.8 %; Neutrophils # (auto) 8.27 K/uL (1.4-6.5); Neutrophils % (auto) 77.5 %; Nucleated RBC # (auto) 0.03 K/uL (0-0); Nucleated RBC % (auto) 0.3 %; Platelet Count 168 K/uL (130-400); RDW Coefficient of Variation 15.3 % (11.5-14.5); RDW Standard Deviation 51.3 fL (36.4-46.3); Red Blood Count 5.18 M/uL (4.2-5.4); White Blood Count 10.66 K/uL (4.8-10.8)
--- NOTE | 2020-12-15 11:58 | XRay Report ---
XR chest 1V portable HISTORY: 70 years-old Female Dyspnea acute shortness of breath COMPARISON: Chest radiograph 06/11/2017 TECHNIQUE: Portable AP view of the chest FINDINGS: Cardiac silhouette is enlarged. Pulmonary vascular congestion with interstitial coarsening. Prior med saranya sternotomy. Surgical clips project over the mediastinum and right upper chest. Trace pleural effu sions. No pneumothorax. Mild bibasilar opacities. Degenerative changes of the shoulders and spine. IMPRESSION: 1. Cardiomegaly with pulmonary edema. 2. Trace pleural effusions with bibasilar opacities suggestive of atelectasis versus pneumonitis. ACT 112: Negative or not required by law. The above report was generated using voice recognition software. It may contain grammatical, syntax o r spelling errors. Electronically signed by: Jaden Collier M.D. 12/15/2020 11:57 AM
[2020-12-15 12:08] LABS: INR 1.7 (0.9-1.1); Partial Thromboplastin Time 25.2 Seconds (21.0-31.0); Prothrombin Time 16.4 Seconds (9.0-12.0)
[2020-12-15 12:15] LABS: Alanine Aminotransferase 31 U/L (12-78); Albumin Level 3.3 gm/dl (3.4-5.0); Aspartate Aminotransferase 18 U/L (15-37); BUN Creatinine Ratio 19.1 (10-20); Blood Urea Nitrogen 27 mg/dl (7-18); Carbon Dioxide 22 mmol/L (21-32); Chloride 106 mmol/L (98-107); Creatinine Clr Calc Pharmacy 30.2 ml/min; Est GFR (African American) 44.3; Est GFR (Non-African American) 38.2; Glucose 178 mg/dl (70-99); Potassium 3.8 mmol/L (3.5-5.1); Sodium 141 mmol/L (136-145)
[2020-12-15 12:23] LABS: Alkaline Phosphatase 91 U/L (45-117); Globulin 3.3 gm/dl (2.5-4.0); NT Pro B Type Natriuretic Pept > 35000 pg/ml (0-900); Total Protein 6.6 gm/dl (6.4-8.2); Troponin I 0.051 ng/ml (0-0.045)
[2020-12-15 12:43] LABS: Influenza A virus by PCR Negative (Neg); Influenza B virus by PCR Negative (Neg); RSV by PCR Negative (Neg); SARS CoV2 RNA(COVID-19) InHosp NEGATIVE (Negative)
[2020-12-15] MEDS ORDERED: FUROSEMIDE 40 MG/4 ML VIAL IV STA (13:29)
[2020-12-15] MEDS ORDERED: ONDANSETRON INJ 2 MG/ML 2 ML VIAL IV STA (14:14)
--- NOTE | 2020-12-15 14:53 | History & Physical Report ---
Date of Service December 15, 2020 Assessment & Plan (1) Acute decompensated heart failure: This is a 70yo F with a PMH of ischemic cardiomyopathy, h/o aortocoronary bypass in 2001, paroxysmal SVT, RA, PAD (s/p remote axillo-bifemoral bypass), tobacco use, history of cerebral vascular disease with resultant dysarthria and other medical problems listed below who presents with progressive dyspnea on exertion and fatigue over the past 3 weeks and was found to have acute decompensated heart failure and atrial fibrillation with RVR. Acute decompensated Combineb heart failure Ischemic cardiomyopathy Dyspnea on exertion x 3 weeks. JVD and rales on auscultation. BNP >35,000, troponin 0.051 CXR with cardiomegaly with pulmonary edema EKG with A fib with RVR, LAD, non-specific intra-ventricular conduction block (seen previously) Received 40mg IV Lasix in ED. Will Continue 40mg IV Lasix BID, almanza catheter ordered for strict I&Os, daily weights Echo ordered (last on file from 2011 with moderate LV systolic dysfunction, EF 30-34% with history of anteroseptal, apical, anterior scar on past nuclear stress testing) Trend troponin, monitor on telemetry Need to reconcile medication with [facility] tomorrow Cardiology consult (2) Atrial fibrillation with RVR: Has history of paroxysmal SVT Now has atrial fibrillation with RVR and IVCD Received 1 dose of IV Lopressor 2.5 mg and will continue 2.5 unit every 6 hourly as needed Received 1 dose of oral Lopressor 25 mg-further recommendation as per wealth management manager Has been on digoxin 125 mcg daily and will continue for now Will start intravenous heparin low-dose without bolus Will need prolonged anticoagulation Elevated INR INR elevated at 1.7. Denies taking coumadin. Platelets, AST/ALT/alk phos all WNL No history of known liver disease Repeat CMP and coags tomorrow Consider liver U/S (3) Non compliance w medication regimen: (4) Ischemic cardiomyopathy: As above Status post aortic valve replacement (5) PAD (peripheral artery disease): Continue aspirin and Plavix (6) Rheumatoid arthritis: Has been on hydroxychloroquine No acute arthritis at this time (7) Tobacco use: This is a 70yo F with a PMH of ischemic cardiomyopathy, h/o aortocoronary bypass in 2001, paroxysmal SVT, RA, PAD (s/p remote axillo-bifemoral bypass), tobacco use, history of cerebral vascular disease with resultant dysarthria and other medical problems listed below who presents with progressive dyspnea on exertion and fatigue over the past 3 weeks and was found to have acute decompensated heart failure and atrial fibrillation with RVR. Acute decompensated heart failure Ischemic cardiomyopathy Dyspnea on exertion x 3 weeks. JVD and rales on auscultation. BNP >35,000, troponin 0.051 CXR with cardiomegaly with pulmonary edema EKG with A fib with RVR, LAD, non-specific intra-ventricular conduction block (seen previously) Given 40mg IV Lasix in ED. Continue 40mg IV Lasix BID, almanza catheter ordered for strict I&Os, daily weights Echo ordered (last on file from 2011 with moderate LV systolic dysfunction, EF 30-34% with history of anteroseptal, apical, anterior scar on past nuclear stress testing) Trend troponin, monitor on telemetry Need to reconcile medication list with [facility] office tomorrow Atrial fibrillation with RVR A Fib with RVR with HR ranging from 101-140 since arrival Ordering missed dose of home Digoxin and 25mg Lopressor PO. PRN IV Lopressor 2.5mg Q6H Given IV low dose IV heparin for anticoagulation Routine cardiology consult for tomorrow Elevated INR INR elevated at 1.7. Denies taking coumadin. Platelets, AST/ALT/alk phos all WNL No history of known liver disease Repeat CMP and coags tomorrow Consider liver U/S Rheumatoid arthritis Continue hydroxychloroquine HS PAD Continue aspirin, plavix, statin Tobacco use Has been smoking for 35+ years, quit 10 days ago Smoking cessation education DVT Ppx: IV heparin Code status: FULL PCP: GREG Li w/ [facility] [place] Dispo: Admitted to PCU. Discharge planning ordered Patient seen in collaboration with Dr. Sheppard. Please see addendum. History of Present Illness Primary Care Provider: Samantha Li This is a 70yo F with a PMH of ischemic cardiomyopathy, h/o aortocoronary bypass in 2001, paroxysmal SVT, RA, PAD (s/p remote axillo-bifemoral bypass), tobacco use, history of cerebral vascular disease with resultant dysarthria and other medical problems listed below who presents with progressive dyspnea on exertion and fatigue over the past 3 weeks. at bedside also mentions poor oral intake and weight loss over the past few months. Patient follows with GREG Neal of [facility] and Dr. Oseguera of cardiology but has not been to follow up appointment since 2019. Endorses orthopnea and PND. brought patient in due to concerning breathing pattern he noticed overnight. Patient denies any chest pain or palpitations. It is unclear what medication patient is taking. Patient is uncertain. wrote down medication bottles he saw at home, which do not look to have been filled since 2019. Will clarify with [facility] office tomorrow. Patient has declined a follow up echocardiogram on previous cardiology appointments but last one on record from 2011 shows moderate left ventricular systolic dysfunction, left ventricular ejection fraction 30-34 percent with history of anteroseptal, apical, anterior scar on past nuclear stress testing. Has not smoked a cigarette in 10 days. Denies fever, chills, lightheadedness, headache, chest pain, palpitations, nausea, vomiting, abdominal pain, dysuria, diarrhea or constipation. In ED, patient found to be tachycardic with A Fib with RVR ranging from 101-140. Labwork significant for INR of 1.7, Cr 1.41 (baseline unknown), troponin 0.051, pro-BNP >35,000. Covid, Flu A/B and RSV negative. CXR with cardiomegaly with pu lmonary edema. Allergies Allergy/AdvReac Type Severity Reaction Status Date / Time Cephalosporins Allergy Intermediate RASH Verified 12/15/20 12:41 Penicillins Allergy Mild Verified 12/15/20 12:41 cephalexin Allergy Unknown HIVES Verified 12/15/20 12:41 fexofenadine Allergy Unknown SEWLLING Verified 12/15/20 12:41 prednisone Allergy Unknown SWELLING Verified 12/15/20 12:41 Home Medications Medication Instructions Recorded Confirmed Type aspirin 81 mg PO DAILY 12/15/20 12/15/20 History clopidogrel 75 mg PO DAILY 12/15/20 12/15/20 History digoxin 125 mcg PO DAILY 12/15/20 12/15/20 History famotidine 20 mg PO BID 12/15/20 12/15/20 History hydroxychloroquine 200 mg PO DAILY 12/15/20 12/15/20 History ipratropium-albuterol [Combivent] 1 spray INHALATION DAILY 12/15/20 12/15/20 History montelukast 10 mg PO DAILY 12/15/20 12/15/20 History rosuvastatin 10 mg PO HS 12/15/20 12/15/20 History Past Med/Surg History Medical History Ischemic cardiomyopathy Osteoporosis PAD (peripheral artery disease) s/p remote axillo-bifemoral bypass Paroxysmal SVT (supraventricular tachycardia) Rheumatoid arthritis Tobacco use Surgical History (Updated 12/15/20 @ 17:16 by Francisca Alfaro PA-C) H/O aortic valve replacement homograft AV replacement 2001 H/O ventral hernia repair S/P ascending aortic aneurysm repair possibly aortic aneurysm dissection repair in 1999 at time of initial bypass surgery at [facility] Family History (Updated 12/15/20 @ 17:16 by Francisca Alfaro PA-C) Other Heart disease Social History (Updated 12/15/20 @ 17:16 by Francisca Alfaro PA-C) Smoking Status: Former smoker Years Smoked: 35; Smoking End Date: quit 10 days ago; Second Hand Exposure: No; Do You Dip or Chew Tobacco: No; Tobacco Cessation Education Requested by Patient: No Hx Alcohol Use: No Hx Substance Use: No Preferred Language: Greek Communication Ability: Effective 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 Physical Exam Physical Exam: General Appearance: vitals as above, NAD, sitting up in bed, appears chronically ill, frail Head: normocephalic, atraumatic Eyes: normal inspection, PERRL, conjunctivae normal, anicteric sclerae ENT: external ear and nose normal, oropharynx normal Neck: normal visual inspection, trachea midline, no thyromegaly Respiratory: normal respiratory effort, bibasilar rales, no wheeze or rhonchi. No accessory muscle use Cardiovascular: tachycardic irregular rate & rhythm, no murmur appreciated, normal peripheral pulses, no BLE edema. Vessels: + JVD Chest: Sternotomy scar, normal inspection of chest Abdomen/GI: normal bowel sounds, soft, nontender, no hepatosplenomegaly Extremities/Musculoskeletal: no cyanosis or clubbing, extremities motor strength 5/5 Neurologic: PERRL, EOMI, accommodation nl, no face palsy, + dysarthria (chronic), CN's II-XI intact bilaterally and moves all extremities Psychiatric: A+Ox3, euthymic affect Skin: no rashes, normal color, warm/dry Results & Data Results & Data ([facility]) Vital Signs (Past 12 Hours) Vital Signs Temp Pulse Resp BP Pulse Ox 12/15/20 14:42 136 H 25 H 111/81 95 12/15/20 14:00 105 H 18 123/78 96 12/15/20 13:30 96 H 23 153/83 H 98 12/15/20 13:00 106 H 19 83/63 L 95 12/15/20 12:30 103 H 20 131/87 96 12/15/20 12:00 103 H 31 H 115/83 97 12/15/20 11:54 90 12/15/20 11:45 95 12/15/20 11:30 94 H 39 H 136/90 96 12/15/20 11:24 97 H 40 H 115/80 85 L 12/15/20 11:20 113 H 42 H 94 12/15/20 10:53 36.7 C 101 H 20 122/60 97 Laboratory Results Short CBC 12/15/20 12/15/20 Range/Units 11:34 11:34 WBC 10.66 (4.8-10.8) K/uL Hgb 16.4 H (12.0-16.0) g/dL Hct 48.4 H (37-47) % Plt Count 168 (130-400) K/uL Creatinine 1.41 H (0.6-1.2) mg/dl BMP 12/15/20 11:34 Sodium 141 Potassium 3.8 Chloride 106 Carbon Dioxide 22 BUN 27 H Creatinine 1.41 H Glucose 178 H Calcium 10.0 Cardiac Enzymes 12/15/20 Range/Units 11:34 Troponin I 0.051 H* (0-0.045) ng/ml Liver Function 12/15/20 Range/Units 11:34 Total Bilirubin 3.0 H (0.2-1) mg/dl AST 18 (15-37) U/L ALT 31 (12-78) U/L Alkaline Phosphatase 91 (45-117) U/L Albumin 3.3 L (3.4-5.0) gm/dl Urine 12/15/20 Range/Units 14:30 Urine Color Yellow Urine Appearance Clear (Clear) Urine pH 6.0 (4.5-7.5) Ur Specific [place] 1.006 (1.000-1.030) Urine Protein Negative (Negative) Urine Glucose (UA) Negative (Negative) Diagnostic Findings CXR: IMPRESSION: 1. Cardiomegaly with pulmonary edema. 2. Trace pleural effusions with bibasilar opacities suggestive of atelectasis versus pneumonitis. ECG Rhythm: atrial fibrillation Code Status & VTE Plan VTE Prophylaxis Plan VTE Prophylaxis will be ordered: Yes Supervising Physician Co-Signing Physician Notes Attending addendum: The patient was seen and examined in telemetry unit She has trouble speech due to past vocal cord injury Complains that she has been having shortness of breath with minimal exertion for the last couple of weeks with fatigue and associated with swelling of the legs Denies any chest pain but admits to have palpitation She has been to her doctor this Wednesday. 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 Abnormal speech due to prior vocal cord injury Her admission labs, EKG and imaging studies reviewed Seems to be noncompliant with medications and limited knowledge about medicines those have been prescribed. Ischemic cardiomyopathy with history of aortic valve replacement Has acute decompensated systolic and diastolic heart failure with known EF of 30 to 40% in 2012 A. fib with RVR Peripheral vascular disease History of repair of abdominal aortic aneurysm Rheumatoid arthritis History of tobacco abuse Agree with assessment and plan as outlined above by GREG Jeffery DR
[2020-12-15 14:55] LABS: Appearance Urine Clear (Clear); Bilirubin Urine Negative (Negative); Blood Urine Negative (Negative); Color Urine Yellow; Glucose Urine UA Negative (Negative); Ketones Urine Negative (Negative); Leukocyte Esterase Urine Negative (Negative); Nitrite Urine Negative (Negative); Protein Urine Negative (Negative); Specific Gravity Urine 1.006 (1.000-1.030); Urobilinogen Urine Negative (Negative)
[2020-12-15] MEDS ORDERED: METOPROLOL TARTRATE 1 MG/ML VIAL IV STA (15:39)
[2020-12-15] MEDS ORDERED: Heparin IV Low Dose WITH Bolus IV STA (15:41)
[2020-12-15] MEDS ORDERED: POLYETHYLENE (MIRALAX) 17 GM PACK PO PRN (16:05)
[2020-12-15] MEDS ORDERED: ONDANSETRON INJ 2 MG/ML 2 ML VIAL IV PRN (16:05)
[2020-12-15] MEDS ORDERED: ACETAMINOPHEN 325 MG TAB PO PRN (16:05)
--- NOTE | 2020-12-15 16:29 | Emergency Department Note ---
Impression & Plan CHF (congestive heart failure), A-fib, Abnormal ECG, SOB (shortness of breath) ED Provider Note INFORMANT: Patient ED PROVIDER(S): Hilario Asher MD CHIEF COMPLAINT: Shortness of breath PLAN: Disposition: Admitted Condition: Good Outpatient prescription management: none Referral: None MEDICAL DECISION MAKING: Patient presented because of shortness of breath. She has a cardiac history. She had a mildly elevated heart rate with A. fib. This did not require IV rate control. She had fluids initially started but then these were discontinued. Blood work revealed an unremarkable CBC and chemistry panel. Covid testing was negative. Patient's troponin was mildly elevated and her BNP was markedly elevated concerning for CHF. A chest x-ray did reveal some mild pulmonary edema. She was given IV Lasix. She was reassessed. She will need further management in the hospital. Consultation was made with the [facility] hospitalist service. I discussed the case with Francisca Alfaro PA-C. The patient will be admitted under Dr. Sheppard. Triage Nursing notes reviewed and agree them. Additional history obtained from patient's Vital Signs: reviewed and remarkable for borderline tachycardia Differential diagnosis: Reactive airway disease, pneumonia, pneumothorax, COPD, CHF, infections, cardiac ischemia, pulmonary embolism, musculoskeletal, gastrointestinal, as well as other pathologies. Diagnostics interpreted by me: ECG: Twelve-lead ECG reveals A. fib with RVR at 114 bpm. Left axis deviation. There is a nonspecific interventricular conduction delay present. Lateral T wave inversions. Cardiac Monitoring: Cardiac monitoring ordered by me: The patient was placed on continuous cardiac monitoring and observed. It revealed atrial fibrillation at 104 beats per minute without ectopy or evidence of dysrhythmia. Imaging studies: Chest x-ray concerning for mild CHF. I refer you to the EMR for further details. Consultation(s): [facility] hospitalist service HPI: The patient is a 70 year old female who presents to the Emergency Room with complaints of shortness of breath. This started a few weeks ago and is worsening. The patient also notes the following associated symptoms, poor oral intake, weight loss, fatigue. The patient has found no relieving factors. Current pain is rated as 0/10. Patient's notes that she has been getting worse over the last few weeks and complaining more about her breathing. There has been no sick contact. The patient has not been out of the house. No Covid exposures. Pt denies LOC, headache, fevers, chills, diaphoresis, visual changes, neck pain, chest pain, nausea, vomiting, abdominal pain, back pain, melena, hematochezia, urinary symptoms, numbness, lymphadenopathy, rash, or other complaints. ROS: See above HPI for pertinent positives & negatives. A total of 10 systems reviewed and were otherwise negative. PAST MEDICAL HISTORY:See Below , A. fib, acute renal failure PAST SURGICAL HISTORY:See Below, FAMILY HISTORY:See Below SOCIAL HISTORY:See Below, HOME MEDICATIONS:See Below ALLERGIES:See Below VITALS:See Below PHYSICAL EXAMINATION: GENERAL: Awake, alert, mildly dyspneic and anxious-appearing, in no distress HENT: Normocephalic, atraumatic. Oropharynx unremarkable. EYES: Normal conjunctiva. Sclera non-icteric. NECK: Inspection normal. Non-tender. Supple. No nuchal rigidity. FROM. No masses. RESPIRATORY: Few scattered rales. No wheezes. Increased respiratory effort. CARDIAC: Normal rate. Normal rhythm. No murmurs. No rubs. Extremities warm and well perfused. Pulses equal. No JVD. GI: Soft, non-distended. No tenderness to palpation. No rebound or guarding. No masses. RECTAL: Deferred. MUSCULOSKELETAL: Atraumatic. Chest examination reveals no tenderness. The back is symmetrical on inspection without obvious abnormality. There is no CVA tenderness to palpation. No joint edema. LOWER EXTREMITIES: Calves are equal size bilaterally and non-tender. No edema. No discoloration. NEURO: Normal sensorium. No sensory or motor deficits noted. SKIN: No rash or jaundice noted. Hilario Asher MD Past Med/Surg History Social History Smoking Status: Former smoker Second Hand Exposure: No; Do You Dip or Chew Tobacco: No; Tobacco Cessation Education Requested by Patient: No Hx Alcohol Use: No Hx Substance Use: No Preferred Language: American Communication Ability: Effective Automobile Wrecker Required: No Beliefs That Will Affect Care: None Current Living Situation: Spouse Other Information That Helps Us Care for You: No Feels Safe at Home: Yes Safety Concerns: Feels Safe At This Time Assistive Devices: Denture - Upper, Denture - Lower, Glasses and Walker Allergies Allergies Allergy/AdvReac Type Severity Reaction Status Date / Time Cephalosporins Allergy Intermediate RASH Verified 12/15/20 12:41 Penicillins Allergy Mild Verified 12/15/20 12:41 cephalexin Allergy Unknown HIVES Verified 12/15/20 12:41 fexofenadine Allergy Unknown SEWLLING Verified 12/15/20 12:41 prednisone Allergy Unknown SWELLING Verified 12/15/20 12:41 Home Meds Home Medications Medication Instructions Recorded Confirmed aspirin 81 mg PO DAILY 12/15/20 12/15/20 clopidogrel 75 mg PO DAILY 12/15/20 12/15/20 digoxin 125 mcg PO DAILY 12/15/20 12/15/20 famotidine 20 mg PO BID 12/15/20 12/15/20 hydroxychloroquine 200 mg PO DAILY 12/15/20 12/15/20 ipratropium-albuterol [Combivent] 1 spray INHALATION DAILY 12/15/20 12/15/20 montelukast 10 mg PO DAILY 12/15/20 12/15/20 Results & Data (ED) Vital Signs Vital Signs - 24 hr 12/15/20 10:53 12/15/20 11:20 12/15/20 11:24 Temperature 36.7 C Temperature Source Temporal Artery Scan Pulse Rate 101 H 113 H 97 H Pulse Rate from SpO2 Sensor 111 H 105 H Respiratory Rate 20 42 H 40 H Respiratory Effort / Characteristics Non-Labored Respiratory Depth Normal Respiratory Pattern Regular Blood Pressure 122/60 115/80 Blood Pressure Mean 80 91 Pulse Oximetry 97 94 85 L Oxygen Delivery Method Room Air Room Air Room Air Oxygen Flow Rate Sepsis Recent Fever Within 48 Hours No Sepsis New/Unexplained Change in Mental Status N/A Sepsis Action Taken by Nursing No Action Required Oxygen Flow Rate - Titration Pulse Oximetry Post Tiitration 12/15/20 11:30 12/15/20 11:45 12/15/20 11:54 Temperature Temperature Source Pulse Rate 94 H Pulse Rate from SpO2 Sensor 101 H Respiratory Rate 39 H Respiratory Effort / Characteristics Short of Breath Respiratory Depth Respiratory Pattern Tachypnea Blood Pressure 136/90 Blood Pressure Mean 105 Pulse Oximetry 96 95 90 Oxygen Delivery Method Room Air Room Air Room Air Oxygen Flow Rate 0 Sepsis Recent Fever Within 48 Hours Sepsis New/Unexplained Change in Mental Status Sepsis Action Taken by Nursing Oxygen Flow Rate - Titration 2 Pulse Oximetry Post Tiitration 99 12/15/20 12:00 12/15/20 12:30 12/15/20 13:00 Temperature Temperature Source Pulse Rate 103 H 103 H 106 H Pulse Rate from SpO2 Sensor 104 H 104 H 106 H Respiratory Rate 31 H 20 19 Respiratory Effort / Characteristics Respiratory Depth Respiratory Pattern Blood Pressure 115/83 131/87 83/63 L Blood Pressure Mean 93 101 69 Pulse Oximetry 97 96 95 Oxygen Delivery Method Nasal Cannula Oxygen Flow Rate 1 Sepsis Recent Fever Within 48 Hours Sepsis New/Unexplained Change in Mental Status Sepsis Action Taken by Nursing Oxygen Flow Rate - Titration Pulse Oximetry Post Tiitration 12/15/20 13:30 12/15/20 14:00 12/15/20 14:42 Temperature Temperature Source Pulse Rate 96 H 105 H 136 H Pulse Rate from SpO2 Sensor 97 H 107 H 138 H Respiratory Rate 23 18 25 H Respiratory Effort / Characteristics Respiratory Depth Respiratory Pattern Blood Pressure 153/83 H 123/78 111/81 Blood Pressure Mean 106 93 91 Pulse Oximetry 98 96 95 Oxygen Delivery Method Nasal Cannula Oxygen Flow Rate 1 Sepsis Recent Fever Within 48 Hours Sepsis New/Unexplained Change in Mental Status Sepsis Action Taken by Nursing Oxygen Flow Rate - Titration Pulse Oximetry Post Tiitration Laboratory Data Result diagrams: 12/15/20 11:34 12/15/20 11:34 Lab Results 12/15/20 12/15/20 12/15/20 Range/Units 11:34 11:34 11:34 WBC 10.66 (4.8-10.8) K/uL RBC 5.18 (4.2-5.4) M/uL Hgb 16.4 H (12.0-16.0) g/dL Hct 48.4 H (37-47) % MCV 93.4 (80-100) fL MCH 31.7 (25-34) pg MCHC 33.9 (32-36) g/dL RDW Std Deviation 51.3 H (36.4-46.3) fL RDW Coeff of Anali 15.3 H (11.5-14.5) % Plt Count 168 (130-400) K/uL MPV 11.7 H (7.4-10.4) fL Immature Gran % (Auto) 0.4 % Neut % (Auto) 77.5 % Lymph % (Auto) 12.2 % [place] % (Auto) 9.8 % Eos % (Auto) 0.0 % Baso % (Auto) 0.1 % Neut # (Auto) 8.27 H (1.4-6.5) K/uL Lymph # (Auto) 1.30 (1.2-3.4) K/uL [place] # (Auto) 1.04 H (0.11-0.59) K/uL Eos # (Auto) 0.00 (0-0.5) K/uL Baso # (Auto) 0.01 (0-0.2) K/uL Immature Gran # (Auto) 0.04 H (0.00-0.02) K/uL Absolute Nucleated RBC 0.03 H (0-0) K/uL Nucleated RBC % (auto) 0.3 % PT 16.4 H (9.0-12.0) Seconds INR 1.7 H (0.9-1.1) APTT 25.2 (21.0-31.0) Seconds PTT Ratio 1.0 Sodium 141 (136-145) mmol/L Potassium 3.8 (3.5-5.1) mmol/L Chloride 106 (98-107) mmol/L Carbon Dioxide 22 (21-32) mmol/L Anion Gap 14.0 H (3-11) BUN 27 H (7-18) mg/dl Creatinine 1.41 H (0.6-1.2) mg/dl Est Cr Clr Drug Dosing 30.2 ml/min Est GFR ( Amer) 44.3 Est GFR (Non-Af Amer) 38.2 BUN/Creatinine Ratio 19.1 (10-20) Glucose 178 H (70-99) mg/dl Calcium 10.0 (8.5-10.1) mg/dl Magnesium 2.0 (1.8-2.4) mg/dl Total Bilirubin 3.0 H (0.2-1) mg/dl AST 18 (15-37) U/L ALT 31 (12-78) U/L Alkaline Phosphatase 91 (45-117) U/L Troponin I 0.051 H* (0-0.045) ng/ml NT-Pro-B Natriuret Pep > 91961 H (0-900) pg/ml Total Protein 6.6 (6.4-8.2) gm/dl Albumin 3.3 L (3.4-5.0) gm/dl Globulin 3.3 (2.5-4.0) gm/dl Albumin/Globulin Ratio 1.0 (0.9-2) Urine Color Urine Appearance (Clear) Urine pH (4.5-7.5) Ur Specific [place] (1.000-1.030) Urine Protein (Negative) Urine Glucose (UA) (Negative) Urine Ketones (Negative) Urine Blood (Negative) Urine Nitrite (Negative) Urine Bilirubin (Negative) Urine Urobilinogen (Negative) Ur Leukocyte Esterase (Negative) Digoxin (0.8-2.0) ng/ml COVID-19 Eval Order SARS-CoV-2 (PCR) (Negative) Influenza Type A (PCR) (Neg) Influenza Type B (PCR) (Neg) RSV (RT-PCR) (Neg) 12/15/20 12/15/20 12/15/20 Range/Units 11:35 11:35 11:35 WBC (4.8-10.8) K/uL RBC (4.2-5.4) M/uL Hgb (12.0-16.0) g/dL Hct (37-47) % MCV (80-100) fL MCH (25-34) pg MCHC (32-36) g/dL RDW Std Deviation (36.4-46.3) fL RDW Coeff of Anali (11.5-14.5) % Plt Count (130-400) K/uL MPV (7.4-10.4) fL Immature Gran % (Auto) % Neut % (Auto) % Lymph % (Auto) % [place] % (Auto) % Eos % (Auto) % Baso % (Auto) % Neut # (Auto) (1.4-6.5) K/uL Lymph # (Auto) (1.2-3.4) K/uL [place] # (Auto) (0.11-0.59) K/uL Eos # (Auto) (0-0.5) K/uL Baso # (Auto) (0-0.2) K/uL Immature Gran # (Auto) (0.00-0.02) K/uL Absolute Nucleated RBC (0-0) K/uL Nucleated RBC % (auto) % PT (9.0-12.0) Seconds INR (0.9-1.1) APTT (21.0-31.0) Seconds PTT Ratio Sodium (136-145) mmol/L Potassium (3.5-5.1) mmol/L Chloride (98-107) mmol/L Carbon Dioxide (21-32) mmol/L Anion Gap (3-11) BUN (7-18) mg/dl Creatinine (0.6-1.2) mg/dl Est Cr Clr Drug Dosing ml/min Est GFR ( Amer) Est GFR (Non-Af Amer) BUN/Creatinine Ratio (10-20) Glucose (70-99) mg/dl Calcium (8.5-10.1) mg/dl Magnesium (1.8-2.4) mg/dl Total Bilirubin (0.2-1) mg/dl AST (15-37) U/L ALT (12-78) U/L Alkaline Phosphatase (45-117) U/L Troponin I (0-0.045) ng/ml NT-Pro-B Natriuret Pep (0-900) pg/ml Total Protein (6.4-8.2) gm/dl Albumin (3.4-5.0) gm/dl Globulin (2.5-4.0) gm/dl Albumin/Globulin Ratio (0.9-2) Urine Color Urine Appearance (Clear) Urine pH (4.5-7.5) Ur Specific [place] (1.000-1.030) Urine Protein (Negative) Urine Glucose (UA) (Negative) Urine Ketones (Negative) Urine Blood (Negative) Urine Nitrite (Negative) Urine Bilirubin (Negative) Urine Urobilinogen (Negative) Ur Leukocyte Esterase (Negative) Digoxin 0.2 L (0.8-2.0) ng/ml COVID-19 Eval Order CovFluRsv at [facility] SARS-CoV-2 (PCR) NEGATIVE (Negative) Influenza Type A (PCR) Negative (Neg) Influenza Type B (PCR) Negative (Neg) RSV (RT-PCR) Negative (Neg) 12/15/20 Range/Units 14:30 WBC (4.8-10.8) K/uL RBC (4.2-5.4) M/uL Hgb (12.0-16.0) g/dL Hct (37-47) % MCV (80-100) fL MCH (25-34) pg MCHC (32-36) g/dL RDW Std Deviation (36.4-46.3) fL RDW Coeff of Anali (11.5-14.5) % Plt Count (130-400) K/uL MPV (7.4-10.4) fL Immature Gran % (Auto) % Neut % (Auto) % Lymph % (Auto) % [place] % (Auto) % Eos % (Auto) % Baso % (Auto) % Neut # (Auto) (1.4-6.5) K/uL Lymph # (Auto) (1.2-3.4) K/uL [place] # (Auto) (0.11-0.59) K/uL Eos # (Auto) (0-0.5) K/uL Baso # (Auto) (0-0.2) K/uL Immature Gran # (Auto) (0.00-0.02) K/uL Absolute Nucleated RBC (0-0) K/uL Nucleated RBC % (auto) % PT (9.0-12.0) Seconds INR (0.9-1.1) APTT (21.0-31.0) Seconds PTT Ratio Sodium (136-145) mmol/L Potassium (3.5-5.1) mmol/L Chloride (98-107) mmol/L Carbon Dioxide (21-32) mmol/L Anion Gap (3-11) BUN (7-18) mg/dl Creatinine (0.6-1.2) mg/dl Est Cr Clr Drug Dosing ml/min Est GFR ( Amer) Est GFR (Non-Af Amer) BUN/Creatinine Ratio (10-20) Glucose (70-99) mg/dl Calcium (8.5-10.1) mg/dl Magnesium (1.8-2.4) mg/dl Total Bilirubin (0.2-1) mg/dl AST (15-37) U/L ALT (12-78) U/L Alkaline Phosphatase (45-117) U/L Troponin I (0-0.045) ng/ml NT-Pro-B Natriuret Pep (0-900) pg/ml Total Protein (6.4-8.2) gm/dl Albumin (3.4-5.0) gm/dl Globulin (2.5-4.0) gm/dl Albumin/Globulin Ratio (0.9-2) Urine Color Yellow Urine Appearance Clear (Clear) Urine pH 6.0 (4.5-7.5) Ur Specific [place] 1.006 (1.000-1.030) Urine Protein Negative (Negative) Urine Glucose (UA) Negative (Negative) Urine Ketones Negative (Negative) Urine Blood Negative (Negative) Urine Nitrite Negative (Negative) Urine Bilirubin Negative (Negative) Urine Urobilinogen Negative (Negative) Ur Leukocyte Esterase Negative (Negative) Digoxin (0.8-2.0) ng/ml COVID-19 Eval Order SARS-CoV-2 (PCR) (Negative) Influenza Type A (PCR) (Neg) Influenza Type B (PCR) (Neg) RSV (RT-PCR) (Neg) Administered Medications Discontinued Medications Furosemide (Furosemide 40 Mg/4 Ml Vial) 40 mg IV NOW STA Stop: 12/15/20 13:30 Last Admin: 12/15/20 13:45 Dose: 40 mg Documented by: [id number] Sodium Chloride (Nss 1000ml) 1,000 mls @ 125 mls/hr IV .Q8H STA Stop: 12/15/20 19:27 Last Infusion: 12/15/20 16:01 Dose: 0 mls/hr Documented by: [id number] Infusion: 12/15/20 13:30 Dose: 0 mls/hr Documented by: [id number] Admin: 12/15/20 11:55 Dose: 125 mls/hr Documented by: [id number] Metoprolol Tartrate (Metoprolol Tartrate 1 Mg/Ml Vial) 2.5 mg IV NOW STA Stop: 12/15/20 15:40 Last Admin: 12/15/20 16:12 Dose: 2.5 mg Documented by: [id number] Ondansetron HCl (Ondansetron Inj 2 Mg/Ml 2 Ml Vial) 4 mg IV NOW STA Stop: 12/15/20 14:15 Last Admin: 12/15/20 14:26 Dose: 4 mg Documented by: [id number] Discharge Plan Visit Data Chief Complaint: Shortness of Breath/Dyspnea Stated Complaint: SOB ED Provider: Hilario Asher Discharge Problem: CHF (congestive heart failure), A-fib, Abnormal ECG, SOB (shortness of breath) Patient Disposition: Admitted As Inpatient Discharge Instructions Interventions: ED Discharge Assessment Last Done: 12/15/20 15:40
[2020-12-15] MEDS ORDERED: HEPARIN IV BOLUS 3,000 UNITS in SYRINGE 0 ML IV ONE (16:30)
[2020-12-15] MEDS: HEPARIN SODIUM/DEXTROSE 25,000 UNITS/500 ML BAG IV SCH (16:32)
[2020-12-15] MEDS ORDERED: POTASSIUM CHLORIDE CRTAB 20 MEQ TABCR PO STA (16:43)
[2020-12-15] MEDS ORDERED: METOPROLOL TARTRATE 25 MG TAB PO ONE (16:57)
[2020-12-15] MEDS ORDERED: DIGOXIN 0.125 MG TAB PO ONE (17:50)
[2020-12-15] MEDS ORDERED: METOPROLOL TARTRATE 1 MG/ML VIAL IV PRN (17:52)
[2020-12-15] MEDS: FAMOTIDINE 20 MG TAB PO SCH (20:00)
[2020-12-15] MEDS: FUROSEMIDE 40 MG in SYRINGE 0 ML IV SCH (20:00)
[2020-12-15] MEDS ORDERED: FUROSEMIDE 40 MG/4 ML VIAL IV SCH (21:00)
[2020-12-15] MEDS ORDERED: HYDROXYCHLOROQUINE SULFATE 200 MG TAB PO SCH (21:00)
[2020-12-15] MEDS ORDERED: ROSUVASTATIN CALCIUM 10 MG TAB PO SCH (21:00)
[2020-12-15 23:30] LABS: Partial Thromboplastin Ratio 1.4; Partial Thromboplastin Time 37.4 Seconds (21.0-31.0)
[2020-12-16] MEDS ORDERED: HEPARIN IV BOLUS 2,000 UNITS in SYRINGE 0 ML IV ONE (00:29)
[2020-12-16 06:48] LABS: INR 1.8 (0.9-1.1); Partial Thromboplastin Ratio 1.7; Partial Thromboplastin Time 44.8 Seconds (21.0-31.0); Prothrombin Time 17.7 Seconds (9.0-12.0)
[2020-12-16 07:07] LABS: Albumin Globulin Ratio 1.1 (0.9-2); Albumin Level 2.9 gm/dl (3.4-5.0); BUN Creatinine Ratio 20.7 (10-20); Bilirubin,Total 2.2 mg/dl (0.2-1); Calcium 9.4 mg/dl (8.5-10.1); Creatinine Clr Calc Pharmacy 23.8 ml/min; Est GFR (African American) 36.9; Est GFR (Non-African American) 31.8; Globulin 2.7 gm/dl (2.5-4.0); Total Protein 5.6 gm/dl (6.4-8.2); Troponin I 0.196 ng/ml (0-0.045)
[2020-12-16] MEDS: FUROSEMIDE 40 MG in SYRINGE 0 ML IV SCH ×2 (08:05→16:48)
[2020-12-16] MEDS: ASPIRIN 81 MG ECTAB PO SCH (08:06)
[2020-12-16] MEDS: FAMOTIDINE 20 MG TAB PO SCH ×2 (08:06→20:42)
[2020-12-16] MEDS: MONTELUKAST SODIUM 10 MG TABLET PO SCH (08:07)
[2020-12-16] MEDS: CLOPIDOGREL BISULFATE 75 MG TAB PO SCH (08:07)
--- NOTE | 2020-12-16 08:30 | Electrocardiogram Report ---
Test Reason : Blood Pressure : / mmHG Vent. Rate : 114 BPM Atrial Rate : 114 BPM P-R Int : 000 ms QRS Dur : 130 ms QT Int : 366 ms P-R-T Axes : 000 -30 149 degrees QTc Int : 504 ms Sinus rhythm with frequent Premature atrial complexes Left axis deviation Non-specific intra-ventricular conduction block Diffuse Nonspecific ST and T wave abnormality Abnormal ECG When compared with ECG of 11-JUN-2017 18:48, Vent. rate has increased BY 45 BPM Premature atrial complexes now present Confirmed by Marco Antonio Arora ([id number]) on 12/16/2020 8:29:52 AM Referred By: REFERRED SELF Confirmed By:Marco Antonio Arora
--- NOTE | 2020-12-16 08:55 | Electrocardiogram Report ---
Test Reason : Blood Pressure : / mmHG Vent. Rate : 127 BPM Atrial Rate : 153 BPM P-R Int : 000 ms QRS Dur : 136 ms QT Int : 342 ms P-R-T Axes : 000 -56 129 degrees QTc Int : 497 ms Atrial fibrillation with rapid ventricular response Left axis deviation Non-specific intra-ventricular conduction block Diffuse Nonspecific ST and T wave abnormality Abnormal ECG When compared with ECG of 15-DEC-2020 11:22, Atrial fibrillation now present (P waves no longer seen) HR has increased by 13 bpm Confirmed by Marco Antonio Arora ([id number]) on 12/16/2020 8:54:35 AM Referred By: REFERRED SELF Confirmed By:Marco Antonio Arora
[2020-12-16] MEDS ORDERED: IPRATROPIUM ALBUTEROL INH SCH (09:00)
--- NOTE | 2020-12-16 09:39 | Cardiology Consultation ---
Date of Consultation December 16, 2020 Assessment & Plan (1) Atrial fibrillation with RVR: (2) Acute decompensated heart failure: (3) PAD (peripheral artery disease): (4) Tobacco use: (5) Ischemic cardiomyopathy: (6) Non compliance w medication regimen: (7) Dysarthria: (8) Chronic passive congestion of liver: (9) S/P AVR: It was my pleasure to see Mrs. Wasserman in cardiac consultation today. She does carry a very complex cardiac history which is only worsened by her noncompliance. She presents in new onset atrial fibrillation and it sounds as though she is been symptomatic for several months now. Most recent PCP note from August notes that she was tachycardic at that time. The pathophysiology and treatment options for atrial fibrillation were discussed with her at great length today. I believe the most prudent course of action at this point would be to rate control using evidence-based beta-brittanie Given her significant cardiomyopathy calcium channel brittanie should be avoided. Consideration could also be given to adding digoxin. 2D echocardiogram has been ordered and will be reviewed once available. She has been started on heparin anticoagulation and should be continued. I do believe her elevated INR is due to passive congestion and will continue with diuresis as well. History of Present Illness Reason for Consultation: Atrial fibrillation with rapid ventricular response Requesting Physician: Dr. Lux Attending Physician: Rex Sheppard MD History of Present Illness Mrs. Wasserman is a very cardiovascularly complex 70-year-old woman who previously followed with Dr. Oseguera of our cardiology practice. She presents to [facility] on 12/15/2020 with complaints of worsening shortness of breath and palpitations. The patient states that she has been feeling poorly for several months now. She has been noticing increasing dyspnea with exertion to the point where is now occurring with less and less activity and even at rest. She is also noticed her heart racing but denies any chest pain. Upon arrival she was found to be in A. fib with rapid ventricular response and she was started on a heparin drip. She was admitted to telemetry IV diuretics were given as well and she states that she is currently feeling a little bit better since presentation. The patient has a longstanding history of noncompliance with medications and medical follow-up. She has not followed up with the cardiology clinic as recommended nor has she agreed with repeat echocardiograms as was recommended by her primary abrading machine tender. She is unsure of her medications and an updated list was obtained by from her PCPs office but again at this point it does not appear that she is been taking any of her medications. Allergies Allergy/AdvReac Type Severity Reaction Status Date / Time cephalexin Allergy Intermediate HIVES Verified 12/16/20 09:00 Cephalosporins Allergy Intermediate RASH Verified 12/15/20 12:41 fexofenadine Allergy Intermediate SEWLLING Verified 12/16/20 09:00 Penicillins Allergy Mild Unknown Verified 12/16/20 09:00 prednisone AdvReac Mild SWELLING Verified 12/16/20 09:00 Home Medications Medication Instructions Recorded Confirmed Type aspirin 81 mg PO DAILY 12/15/20 12/15/20 History clopidogrel 75 mg PO DAILY 12/15/20 12/15/20 History digoxin 125 mcg PO DAILY 12/15/20 12/15/20 History famotidine 20 mg PO BID 12/15/20 12/15/20 History hydroxychloroquine 200 mg PO HS 12/15/20 12/15/20 History ipratropium-albuterol [Combivent] 1 spray INHALATION DAILY 12/15/20 12/15/20 History montelukast 10 mg PO PM 12/15/20 12/16/20 History rosuvastatin 10 mg PO HS 12/15/20 12/15/20 History Nitrostat 0.04 mg DIRECTED 12/16/20 12/16/20 History Tums DIRECTED 12/16/20 History albuterol sulfate 2.5 mg INHALATION Q4H PRN 12/16/20 12/16/20 History budesonide [Pulmicort Flexhaler] 2 inh INHALATION BID 12/16/20 12/16/20 History clopidogrel 75 mg PO DAILY 12/16/20 12/16/20 History digoxin 125 mcg PO DAILY 12/16/20 12/16/20 History famotidine 20 mg PO BID 12/16/20 12/16/20 History fenofibrate 54 mg PO DAILY 12/16/20 12/16/20 History furosemide 20 mg PO BID 12/16/20 12/16/20 History hydroxychloroquine 200 mg PO QAM 12/16/20 12/16/20 History hydroxyzine HCl 50 mg PO TID PRN 12/16/20 12/16/20 History ipratropium-albuterol [Combivent INHALATION 12/16/20 History Respimat] isosorbide mononitrate 60 mg PO QAM 12/16/20 12/16/20 History lisinopril 10 mg PO DAILY 12/16/20 12/16/20 History loratadine [Claritin] 10 mg PO DAILY 12/16/20 12/16/20 History magnesium oxide 400 mg PO DAILY 12/16/20 12/16/20 History metoprolol succinate 50 mg PO 12/16/20 History naproxen 500 mg PO PM 12/16/20 12/16/20 History prednisone 5 mg PO DAILY 12/16/20 12/16/20 History rosuvastatin 10 mg PO PM 12/16/20 12/16/20 History zoster vaccine live (PF) [Zostavax ml SUBCUT 12/16/20 History (PF)] Patient History Medical History Ischemic cardiomyopathy Osteoporosis PAD (peripheral artery disease) s/p remote axillo-bifemoral bypass Paroxysmal SVT (supraventricular tachycardia) Rheumatoid arthritis Tobacco use Surgical History H/O aortic valve replacement homograft AV replacement 2001 H/O ventral hernia repair S/P ascending aortic aneurysm repair possibly aortic aneurysm dissection repair in 1999 at time of initial bypass surgery at [facility] Family History Other Heart disease Social History Smoking Status: Former smoker Years Smoked: 35; Smoking End Date: quit 10 days ago; Second Hand Exposure: No; Do You Dip or Chew Tobacco: No; Tobacco Cessation Education Requested by Patient: No Hx Alcohol Use: No Hx Substance Use: No Preferred Language: Macanese Communication Ability: Effective 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 No acute distress. HEENT: Normocephalic, atraumatic. Pupils equal, round and reactive to light and accommodation. Extraocular muscles are intact. Anicteric sclera. Moist mucous membranes. Neck: No JVD. No bruit. Cardiovascular: irregularly irregular, unable to appreciate murmur, rub or gallop. Pulmonary: Clear to auscultation bilaterally. No rales, rhonchi, or wheezing. Abdomen: Bowel sounds x 4, soft. No rebound, guarding or tenderness. No organomegaly. Extremities: No clubbing, cyanosis or edema. +2 pedal pulses bilaterally. Skin: Warm and dry. Results & Data ([facility]) Vital Signs (Past 12 Hours) Vital Signs Temp Pulse Pulse Resp BP Pulse Ox Pulse Ox 12/16/20 08:00 36.6 C 111 H 18 113/77 97 96 12/16/20 03:44 36.7 C 105 H 20 96/62 L 97 12/15/20 23:47 36.8 C 98 H 21 93/57 L 98 12/15/20 23:00 106 H Laboratory Results Laboratory Results - last 24 hr 12/15/20 12/15/20 12/15/20 11:34 11:34 11:34 WBC 10.66 RBC 5.18 Hgb 16.4 H Hct 48.4 H MCV 93.4 MCH 31.7 MCHC 33.9 RDW Std Deviation 51.3 H RDW Coeff of Anali 15.3 H Plt Count 168 MPV 11.7 H Immature Gran % (Auto) 0.4 Neut % (Auto) 77.5 Lymph % (Auto) 12.2 Toombs % (Auto) 9.8 Eos % (Auto) 0.0 Baso % (Auto) 0.1 Neut # (Auto) 8.27 H Lymph # (Auto) 1.30 Toombs # (Auto) 1.04 H Eos # (Auto) 0.00 Baso # (Auto) 0.01 Immature Gran # (Auto) 0.04 H Absolute Nucleated RBC 0.03 H Nucleated RBC % (auto) 0.3 PT 16.4 H INR 1.7 H APTT 25.2 PTT Ratio 1.0 Sodium 141 Potassium 3.8 Chloride 106 Carbon Dioxide 22 Anion Gap 14.0 H BUN 27 H Creatinine 1.41 H Est Cr Clr Drug Dosing 30.2 Est GFR ( Amer) 44.3 Est GFR (Non-Af Amer) 38.2 BUN/Creatinine Ratio 19.1 Glucose 178 H Calcium 10.0 Magnesium 2.0 Total Bilirubin 3.0 H AST 18 ALT 31 Alkaline Phosphatase 91 Troponin I 0.051 H* NT-Pro-B Natriuret Pep > 84853 H Total Protein 6.6 Albumin 3.3 L Globulin 3.3 Albumin/Globulin Ratio 1.0 Urine Color Urine Appearance Urine pH Ur Specific Sheldon Urine Protein Urine Glucose (UA) Urine Ketones Urine Blood Urine Nitrite Urine Bilirubin Urine Urobilinogen Ur Leukocyte Esterase Digoxin COVID-19 Eval Order SARS-CoV-2 (PCR) Influenza Type A (PCR) Influenza Type B (PCR) RSV (RT-PCR) 12/15/20 12/15/20 12/15/20 11:35 11:35 11:35 WBC RBC Hgb Hct MCV MCH MCHC RDW Std Deviation RDW Coeff of Anali Plt Count MPV Immature Gran % (Auto) Neut % (Auto) Lymph % (Auto) Toombs % (Auto) Eos % (Auto) Baso % (Auto) Neut # (Auto) Lymph # (Auto) Toombs # (Auto) Eos # (Auto) Baso # (Auto) Immature Gran # (Auto) Absolute Nucleated RBC Nucleated RBC % (auto) PT INR APTT PTT Ratio Sodium Potassium Chloride Carbon Dioxide Anion Gap BUN Creatinine Est Cr Clr Drug Dosing Est GFR ( Amer) Est GFR (Non-Af Amer) BUN/Creatinine Ratio Glucose Calcium Magnesium Total Bilirubin AST ALT Alkaline Phosphatase Troponin I NT-Pro-B Natriuret Pep Total Protein Albumin Globulin Albumin/Globulin Ratio Urine Color Urine Appearance Urine pH Ur Specific Sheldon Urine Protein Urine Glucose (UA) Urine Ketones Urine Blood Urine Nitrite Urine Bilirubin Urine Urobilinogen Ur Leukocyte Esterase Digoxin 0.2 L COVID-19 Eval Order CovFluRsv at [facility] SARS-CoV-2 (PCR) NEGATIVE Influenza Type A (PCR) Negative Influenza Type B (PCR) Negative RSV (RT-PCR) Negative 12/15/20 12/15/20 12/15/20 14:30 17:43 17:43 WBC RBC Hgb Hct MCV MCH MCHC RDW Std Deviation RDW Coeff of Anali Plt Count MPV Immature Gran % (Auto) Neut % (Auto) Lymph % (Auto) Toombs % (Auto) Eos % (Auto) Baso % (Auto) Neut # (Auto) Lymph # (Auto) Toombs # (Auto) Eos # (Auto) Baso # (Auto) Immature Gran # (Auto) Absolute Nucleated RBC Nucleated RBC % (auto) PT INR APTT PTT Ratio Sodium Potassium Chloride Carbon Dioxide Anion Gap BUN Creatinine Est Cr Clr Drug Dosing Est GFR ( Amer) Est GFR (Non-Af Amer) BUN/Creatinine Ratio Glucose Calcium Magnesium 1.9 Total Bilirubin AST ALT Alkaline Phosphatase Troponin I 0.096 H* NT-Pro-B Natriuret Pep Total Protein Albumin Globulin Albumin/Globulin Ratio Urine Color Yellow Urine Appearance Clear Urine pH 6.0 Ur Specific Sheldon 1.006 Urine Protein Negative Urine Glucose (UA) Negative Urine Ketones Negative Urine Blood Negative Urine Nitrite Negative Urine Bilirubin Negative Urine Urobilinogen Negative Ur Leukocyte Esterase Negative Digoxin COVID-19 Eval Order SARS-CoV-2 (PCR) Influenza Type A (PCR) Influenza Type B (PCR) RSV (RT-PCR) 12/15/20 12/15/20 12/16/20 22:55 22:55 06:15 WBC RBC Hgb Hct MCV MCH MCHC RDW Std Deviation RDW Coeff of Anali Plt Count MPV Immature Gran % (Auto) Neut % (Auto) Lymph % (Auto) Toombs % (Auto) Eos % (Auto) Baso % (Auto) Neut # (Auto) Lymph # (Auto) Toombs # (Auto) Eos # (Auto) Baso # (Auto) Immature Gran # (Auto) Absolute Nucleated RBC Nucleated RBC % (auto) PT INR APTT 37.4 H PTT Ratio 1.4 Sodium 139 Potassium 5.0 D Chloride 106 Carbon Dioxide 24 Anion Gap 9.0 BUN 34 H Creatinine 1.64 H Est Cr Clr Drug Dosing 23.8 Est GFR ( Amer) 36.9 Est GFR (Non-Af Amer) 31.8 BUN/Creatinine Ratio 20.7 H Glucose 115 H Calcium 9.4 Magnesium 2.0 Total Bilirubin 2.2 H AST 478 H ALT 274 H Alkaline Phosphatase 136 H Troponin I 0.126 H* 0.196 H* NT-Pro-B Natriuret Pep Total Protein 5.6 L Albumin 2.9 L Globulin 2.7 Albumin/Globulin Ratio 1.1 Urine Color Urine Appearance Urine pH Ur Specific Sheldon Urine Protein Urine Glucose (UA) Urine Ketones Urine Blood Urine Nitrite Urine Bilirubin Urine Urobilinogen Ur Leukocyte Esterase Digoxin COVID-19 Eval Order SARS-CoV-2 (PCR) Influenza Type A (PCR) Influenza Type B (PCR) RSV (RT-PCR) 12/16/20 06:15 WBC RBC Hgb Hct MCV MCH MCHC RDW Std Deviation RDW Coeff of Anali Plt Count MPV Immature Gran % (Auto) Neut % (Auto) Lymph % (Auto) Toombs % (Auto) Eos % (Auto) Baso % (Auto) Neut # (Auto) Lymph # (Auto) Toombs # (Auto) Eos # (Auto) Baso # (Auto) Immature Gran # (Auto) Absolute Nucleated RBC Nucleated RBC % (auto) PT 17.7 H INR 1.8 H APTT 44.8 H PTT Ratio 1.7 Sodium Potassium Chloride Carbon Dioxide Anion Gap BUN Creatinine Est Cr Clr Drug Dosing Est GFR ( Amer) Est GFR (Non-Af Amer) BUN/Creatinine Ratio Glucose Calcium Magnesium Total Bilirubin AST ALT Alkaline Phosphatase Troponin I NT-Pro-B Natriuret Pep Total Protein Albumin Globulin Albumin/Globulin Ratio Urine Color Urine Appearance Urine pH Ur Specific Sheldon Urine Protein Urine Glucose (UA) Urine Ketones Urine Blood Urine Nitrite Urine Bilirubin Urine Urobilinogen Ur Leukocyte Esterase Digoxin COVID-19 Eval Order SARS-CoV-2 (PCR) Influenza Type A (PCR) Influenza Type B (PCR) RSV (RT-PCR) Medications Administered Current Inpatient Medications Acetaminophen (Acetaminophen 325 Mg Tab) 650 mg PO Q4H PRN PRN Reason: Pain or Fever Stop: 01/14/21 16:04 Aspirin (Aspirin 81 Mg Ectab) 81 mg PO DAILY [facility] Stop: 01/15/21 08:59 Last Admin: 12/16/20 08:06 Dose: 81 mg Documented by: Clopidogrel Bisulfate (Clopidogrel Bisulfate 75 Mg Tab) 75 mg PO DAILY [facility] Stop: 01/15/21 08:59 Last Admin: 12/16/20 08:07 Dose: 75 mg Documented by: Digoxin (Digoxin 0.125 Mg Tab) 0.125 mg PO DAILY@1600 [facility] Stop: 01/15/21 15:59 Famotidine (Famotidine 20 Mg Tab) 20 mg PO BID [facility] Stop: 01/14/21 20:59 Last Admin: 12/16/20 08:06 Dose: 20 mg Documented by: Hydroxychloroquine Sulfate (Hydroxychloroquine Sulfate 200 Mg Tab) 200 mg PO HS [facility] Stop: 01/14/21 20:59 Last Admin: 12/15/20 20:00 Dose: 200 mg Documented by: Heparin Sodium/Dextrose (Heparin Sodium/Dextrose) 25,000 units in 500 mls @ 14 mls/hr IV .Q24H TYRONE; Protocol Stop: 01/14/21 15:44 Last Titration: 12/16/20 07:02 Dose: 700 units/hr, 14 mls/hr Documented by: Furosemide 40 mg/ Syringe 4 mls @ 4 mls/min IV [id number] TYRONE Stop: 01/14/21 20:59 Last Admin: 12/16/20 08:05 Dose: 4 mls/min Documented by: Metoprolol Tartrate (Metoprolol Tartrate 1 Mg/Ml Vial) 2.5 mg IV Q6H PRN PRN Reason: HR >130 Stop: 01/14/21 17:51 Montelukast Sodium (Montelukast Sodium 10 Mg Tablet) 10 mg PO DAILY [facility] Stop: 01/15/21 08:59 Last Admin: 12/16/20 08:07 Dose: 10 mg Documented by: Ondansetron HCl (Ondansetron Inj 2 Mg/Ml 2 Ml Vial) 4 mg IV Q6H PRN PRN Reason: Nausea Stop: 01/14/21 16:04 Polyethylene Glycol (Polyethylene (Miralax) 17 Gm Pack) 17 gm PO DAILY PRN PRN Reason: Constipation Stop: 01/14/21 16:04 Rosuvastatin Calcium (Rosuvastatin Calcium 10 Mg Tab) 10 mg PO [facility] Stop: 01/14/21 20:59 Last Admin: 12/15/20 20:00 Dose: 10 mg Documented by:
--- NOTE | 2020-12-16 09:57 | Ultrasound Report ---
ABDOMINAL ULTRASOUND, RIGHT UPPER QUADRANT HISTORY: Status post cholecystectomy. Right upper quadrant pain. R/O Stones/obstruction. COMPARISON: Abdomen and pelvis CT 06/18/2016. FINDINGS: Pancreas: The pancreas demonstrates a normal echotexture. Trace perihepatic ascites. Liver: Unremarkable. Gallbladder: The gallbladder is surgically absent. CBD: 3 mm. Right kidney: No hydronephrosis. IMPRESSION: 1. Status post cholecystectomy. 2. Normal caliber common bile duct. 3. Trace perihepatic ascites. ACT 112: Negative or not required by law. Electronically signed by: Darwin Castrejon M.D. 12/16/2020 9:56 AM
[2020-12-16] MEDS ORDERED: ALBUTEROL 0.083% NEBU SOLN 3 ML VIAL INH PRN (12:18)
[2020-12-16] MEDS ORDERED: NITROGLYCERIN SL 0.4 MG/TAB TAB SL PRN (12:47)
--- NOTE | 2020-12-16 12:47 | Gastrointestinal Consultation ---
Date of Consultation December 16, 2020 Assessment & Plan (1) Elevated LFTs: (2) Ischemic cardiomyopathy: (3) PAD (peripheral artery disease): (4) Atrial fibrillation with RVR: Pt is a 70 y/o female seen for newly elevated LFTs. Several cardiac comorbidities including Afib, ischemic cardiomyopathy, PAD, currently appears in decompensated HF. Suspect likely congestive hepatopathy or ischemic injury to liver. However will r/o viral infections, AIH. - Trend LFTs - Duplex hepatic vein ordered however per radiologist PV patent on us exam. - Serologies ordered: ZEESHAN, AMA, ASMA, Ceruloplasmin, A1A antitrypsin deficiency, iron profile, ferritin, acute hep a/b/c, HSV1/2, CMV, EBV. - Will follow along Supervising Physician Co-Signing Physician Notes Attending attestation I have seen, examined this patient, and agree with the findings and above by our mid-level provider SAMMI Riggins, with the following additions: Differential of intrinisc liver dz, congestion, ischemia, infectious History of Present Illness Reason for Consultation: Elevated LFTs Requesting Physician: Dr. Rex Sheppard Attending Physician: Dr. Brice Cash History of Present Illness Pt is a 70 y/o female w hx of ischemic cardiomyopathy, h/o aortocoronary bypass in 2001, paroxysmal SVT, RA, PAD (s/p remote axillo-bifemoral bypass), tobacco use, history of cerebral vascular disease with resultant dysarthria who presented w [facility], fatigue for several weeks. She also had poor PO intake, weight loss in last few months. On eval, labs and radiological studies suggest signs of decompensated HF and in Afib, Cardiology following. It's noted that she has newly elevated LFTs: Tbili 2.2, aST 478, ALT 274, AP 136. INR 1.8, Plt 178. Liver u/s unremarkable except trace ascites. Pt denies hx of liver dz, no tobacco, ETOH, illicit drugs, tattoos, body piercing. Denies family hx of liver dz, AIH, iron, copper overload. No recent antibx, new meds. No herbal supplements. She does take Tylenol 2 tabs for OA pain. Allergies Allergy/AdvReac Type Severity Reaction Status Date / Time cephalexin Allergy Intermediate HIVES Verified 12/16/20 09:00 Cephalosporins Allergy Intermediate RASH Verified 12/15/20 12:41 fexofenadine Allergy Intermediate SEWLLING Verified 12/16/20 09:00 Penicillins Allergy Mild Unknown Verified 12/16/20 09:00 prednisone AdvReac Mild SWELLING Verified 12/16/20 09:00 Home Medications Medication Instructions Recorded Confirmed Type aspirin 81 mg PO DAILY 12/15/20 12/15/20 History clopidogrel 75 mg PO DAILY 12/15/20 12/15/20 History digoxin 125 mcg PO DAILY 12/15/20 12/15/20 History famotidine 20 mg PO BID 12/15/20 12/15/20 History hydroxychloroquine 200 mg PO HS 12/15/20 12/15/20 History ipratropium-albuterol [Combivent] 1 spray INHALATION DAILY 12/15/20 12/15/20 History montelukast 10 mg PO PM 12/15/20 12/16/20 History rosuvastatin 10 mg PO HS 12/15/20 12/15/20 History Nitrostat 0.04 mg DIRECTED 12/16/20 12/16/20 History Tums DIRECTED 12/16/20 History albuterol sulfate 2.5 mg INHALATION Q4H PRN 12/16/20 12/16/20 History budesonide [Pulmicort Flexhaler] 2 inh INHALATION BID 12/16/20 12/16/20 History clopidogrel 75 mg PO DAILY 12/16/20 12/16/20 History digoxin 125 mcg PO DAILY 12/16/20 12/16/20 History famotidine 20 mg PO BID 12/16/20 12/16/20 History fenofibrate 54 mg PO DAILY 12/16/20 12/16/20 History furosemide 20 mg PO BID 12/16/20 12/16/20 History hydroxychloroquine 200 mg PO QAM 12/16/20 12/16/20 History hydroxyzine HCl 50 mg PO TID PRN 12/16/20 12/16/20 History ipratropium-albuterol [Combivent INHALATION 12/16/20 History Respimat] isosorbide mononitrate 60 mg PO QAM 12/16/20 12/16/20 History lisinopril 10 mg PO DAILY 12/16/20 12/16/20 History loratadine [Claritin] 10 mg PO DAILY 12/16/20 12/16/20 History magnesium oxide 400 mg PO DAILY 12/16/20 12/16/20 History metoprolol succinate 50 mg PO 12/16/20 History naproxen 500 mg PO PM 12/16/20 12/16/20 History prednisone 5 mg PO DAILY 12/16/20 12/16/20 History rosuvastatin 10 mg PO PM 12/16/20 12/16/20 History zoster vaccine live (PF) [Zostavax ml SUBCUT 12/16/20 History (PF)] Patient History Medical History Ischemic cardiomyopathy Osteoporosis PAD (peripheral artery disease) s/p remote axillo-bifemoral bypass Paroxysmal SVT (supraventricular tachycardia) Rheumatoid arthritis Tobacco use Surgical History H/O aortic valve replacement homograft AV replacement 2001 H/O ventral hernia repair S/P ascending aortic aneurysm repair possibly aortic aneurysm dissection repair in 1999 at time of initial bypass surgery at 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 Beliefs That Will Affect Care: None Current Living Situation: Spouse Other Information That Helps Us Care for You: No Feels Safe at Home: Yes Safety Concerns: Feels Safe At This Time Assistive Devices: Walker Review of Systems Review of Systems: All systems reviewed & are unremarkable except as noted in HPI & below Physical Exam Constitutional: WD/WN, vitals as above + thin, well groomed, cooperative and comfortable Eyes: PERRL, conjunctivae normal, anicteric sclerae ENMT: external ear and nose normal, oropharynx normal Respiratory: normal respiratory effort, lungs clear to auscultation Cardiovascular: RRR, no murmur, no edema Gastrointestinal (Abdomen): normal bowel sounds, soft, nontender, no hepatosplenomegaly Skin: no rashes, warm and dry no jaundice Neurologic: Motor/Sensory: no asterixis Psychiatric: A+Ox3, euthymic affect Lymphatic: no lymphedema Results & Data ([facility]) Vital Signs (Past 12 Hours) Vital Signs Temp Pulse Resp BP Pulse Ox Pulse Ox 12/16/20 12:10 36.9 C 116 H 17 95/67 L 97 12/16/20 08:00 36.6 C 111 H 18 113/77 97 96 12/16/20 03:44 36.7 C 105 H 20 96/62 L 97
[2020-12-16] MEDS: METOPROLOL TARTRATE 1 MG/ML VIAL IV PRN (13:19)
--- NOTE | 2020-12-16 13:56 | Hospitalist Progress Note ---
Date of Service December 16, 2020 Assessment & Plan (1) Acute decompensated heart failure: This is a 70yo F with a PMH of ischemic cardiomyopathy, h/o aortocoronary bypass in 2001, paroxysmal SVT, RA, PAD (s/p remote axillo-bifemoral bypass), tobacco use, history of cerebral vascular disease with resultant dysarthria and other medical problems listed below who presents with progressive dyspnea on exertion and fatigue over the past 3 weeks and was found to have acute decompensated heart failure and atrial fibrillation with RVR. Acute decompensated Combineb heart failure Ischemic cardiomyopathy Dyspnea on exertion x 3 weeks. JVD and rales on auscultation. BNP >35,000, troponin 0.051 CXR with cardiomegaly with pulmonary edema EKG with A fib with RVR, LAD, non-specific intra-ventricular conduction block (seen previously) Received 40mg IV Lasix in ED. Will Continue 40mg IV Lasix BID, almanza catheter ordered for strict I&Os, daily weights Echo ordered (last on file from 2011 with moderate LV systolic dysfunction, EF 30-34% with history of anteroseptal, apical, anterior scar on past nuclear stress testing) Trend troponin, monitor on telemetry Need to reconcile medication with [facility] tomorrow Cardiology consult -appreciate input and recommendation We will add Lopressor 25 mg twice daily-she was getting long-acting beta-brittanie 50 mg daily as an outpatient (2) Atrial fibrillation with RVR: Has history of paroxysmal SVT Now has atrial fibrillation with RVR and IVCD Received 1 dose of IV Lopressor 2.5 mg and will continue 2.5 unit every 6 hourly as needed Received 1 dose of oral Lopressor 25 mg-further recommendation as per dinker Has been on digoxin 125 mcg daily and will continue for now Will start intravenous heparin low-dose without bolus Will need prolonged anticoagulation Rate is not yet controlled- Elevated INR INR elevated at 1.7. Denies taking coumadin. Platelets, AST/ALT/alk phos all WNL No history of known liver disease Repeat CMP and coags tomorrow Consider liver U/S-remained unremarkable Elevated LFTs Her INR was elevated at 1.7 on admission with normal LFTs LFTs next day skyrocketed Likely secondary to hepatic congestion GI service has been consulted for further evaluation and recommendation (3) Non compliance w medication regimen: (4) Ischemic cardiomyopathy: As above Status post aortic valve replacement Increased troponin Possible myocardial demand ischemia Doubt any ACS (5) PAD (peripheral artery disease): Continue aspirin and Plavix (6) Rheumatoid arthritis: Has been on hydroxychloroquine No acute arthritis at this time (7) Tobacco use: Tobacco use Has been smoking for 35+ years, quit 10 days ago Smoking cessation education PAD Continue aspirin, plavix, statin DVT Ppx: IV heparin Code status: FULL PCP: GREG pedersen/ Bakari Crenshaw Dispo: Admitted to PCU. 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 following possible unplanned extubation She denies any symptoms as of this morning Her latest clinic note from her doctor's office and medications placed have been scanned in the chart Her home medications have been updated which are as follows: Singulair 10 mg daily, aspirin 81 mg daily, calcium carbonate 1 tablet daily, Ismo 60 mg daily, metoprolol succinate 50 mg daily, naproxen 500 mg at night, Nitrostat 0.4 mg as directed, magnesium oxide 400 mg daily, famotidine 20 mg twice daily, Combivent Respimat, digoxin 125 mcg daily, fenofibrate 54 mg daily, lisinopril 10 mg daily, rosuvastatin 10 mg daily, Claritin 10 mg daily, Pulmicort 180 mcg twice daily, hydroxyzine 50 mg 3 times daily as needed, furosemide 20 mg twice daily, hydroxychloroquine 200 mg daily, Plavix 75 mg daily, prednisone 5 mg daily, albuterol nebs every 4 hourly as needed. Review of Systems Review of Systems: All systems reviewed and are unremarkable except as noted below Respiratory: + dyspnea on exertion Cardiovascular: no chest pain and no palpitations Neurologic: + generalized weakness Physical Exam Physical Exam: Lying in bed comfortably Constitutional: + acute distress (Minimal shortness of breath at rest), + ill appearing and + thin; + not well nourished Eyes: PERRL, conjunctivae normal, anicteric sclerae ENMT: external ear and nose normal, oropharynx normal Neck: trachea midline, no thyromegaly Respiratory: + respiratory distress (Minimal distress at rest) Auscultation: + diminished lung sounds and + crackles (Minimal bibasilar crackles) Cardiovascular: Rate/Rhythm: + irregularly irregular Heart Sounds: + murmur (2/6 ejection systolic murmur over precordium) Palpation: + abnormal PMI Extremities: + edema (Trace bilateral leg edema) Gastrointestinal (Abdomen): Inspection/Auscultation: normal bowel sounds; abdomen not distended Percussion/Palpation: abdomen soft; abdomen nontender Musculoskeletal: No acute arthritis in any joint Neurologic: Alert, awake and oriented. Dysarthria secondary to vocal cord injury in the past. Generally weak Psychiatric: Insight: + poor insight Lymphatic: no cervical or axillary lymphadenopathy Results & Data Results & Data ([facility]) Vital Signs (Past 12 Hours) Vital Signs Temp Pulse Pulse Resp BP BP Pulse Ox 12/16/20 13:19 137 H 100/56 L 12/16/20 12:10 36.9 C 116 H 17 95/67 L 97 12/16/20 08:00 36.6 C 111 H 18 113/77 97 12/16/20 03:44 36.7 C 105 H 20 96/62 L 97 Pulse Ox 12/16/20 13:19 12/16/20 12:10 12/16/20 08:00 96 12/16/20 03:44 Laboratory Results BMP 12/16/20 06:15 Sodium 139 Potassium 5.0 D Chloride 106 Carbon Dioxide 24 BUN 34 H Creatinine 1.64 H Glucose 115 H Calcium 9.4 Cardiac Enzymes 12/15/20 12/15/20 12/16/20 Range/Units 17:43 22:55 06:15 Troponin I 0.096 H* 0.126 H* 0.196 H* (0-0.045) ng/ml 12/16/20 Range/Units 10:51 Troponin I 0.230 H* (0-0.045) ng/ml Liver Function 12/16/20 Range/Units 06:15 Total Bilirubin 2.2 H (0.2-1) mg/dl AST 478 H (15-37) U/L ALT 274 H (12-78) U/L Alkaline Phosphatase 136 H (45-117) U/L Albumin 2.9 L (3.4-5.0) gm/dl Urine 12/15/20 Range/Units 14:30 Urine Color Yellow Urine Appearance Clear (Clear) Urine pH 6.0 (4.5-7.5) Ur Specific [place] 1.006 (1.000-1.030) Urine Protein Negative (Negative) Urine Glucose (UA) Negative (Negative) Medications Administered Current Inpatient Medications Acetaminophen (Acetaminophen 325 Mg Tab) 650 mg PO Q4H PRN PRN Reason: Pain or Fever Stop: 01/14/21 16:04 Albuterol (Albuterol 0.083% Nebu Soln 3 Ml Vial) 2.5 mg INH Q4H PRN PRN Reason: Adequate Ventilation Stop: 01/15/21 12:17 Aspirin (Aspirin 81 Mg Ectab) 81 mg PO DAILY TYRONE Stop: 01/15/21 08:59 Last Admin: 12/16/20 08:06 Dose: 81 mg Documented by: Clopidogrel Bisulfate (Clopidogrel Bisulfate 75 Mg Tab) 75 mg PO DAILY TYRONE Stop: 01/15/21 08:59 Last Admin: 12/16/20 08:07 Dose: 75 mg Documented by: Digoxin (Digoxin 0.125 Mg Tab) 0.125 mg PO DAILY@1600 [facility] Stop: 01/15/21 15:59 Famotidine (Famotidine 20 Mg Tab) 20 mg PO BID TYRONE Stop: 01/14/21 20:59 Last Admin: 12/16/20 08:06 Dose: 20 mg Documented by: Fenofibrate (Fenofibrate Nanocrystallized 48 Mg Tablet) 48 mg PO DAILY TYRONE Stop: 01/16/21 08:59 Fluticasone Furoate (Fluticasone Furoate 200mcg 14 Puffs/Inhaler) 1 puffs INH DAILY TYRONE Stop: 01/16/21 08:59 Hydroxychloroquine Sulfate (Hydroxychloroquine Sulfate 200 Mg Tab) 200 mg PO HS TYRONE Stop: 01/14/21 20:59 Last Admin: 12/15/20 20:00 Dose: 200 mg Documented by: Heparin Sodium/Dextrose (Heparin Sodium/Dextrose) 25,000 units in 500 mls @ 14 mls/hr IV .Q24H TYRONE; Protocol Stop: 01/14/21 15:44 Last Titration: 12/16/20 07:02 Dose: 700 units/hr, 14 mls/hr Documented by: Furosemide 40 mg/ Syringe 4 mls @ 4 mls/min IV BID17 TYRONE Stop: 01/14/21 20:59 Last Admin: 12/16/20 08:05 Dose: 4 mls/min Documented by: Loratadine (Loratadine 10 Mg Tab) 10 mg PO DAILY [facility] Stop: 01/16/21 08:59 Magnesium Oxide (Magnesium Oxide 400 Mg Tab) 400 mg PO DAILY [facility] Stop: 01/16/21 08:59 Metoprolol Tartrate (Metoprolol Tartrate 1 Mg/Ml Vial) 2.5 mg IV Q6H PRN PRN Reason: HR >130 Stop: 01/14/21 17:51 Last Admin: 12/16/20 13:19 Dose: 2.5 mg Documented by: Montelukast Sodium (Montelukast Sodium 10 Mg Tablet) 10 mg PO DAILY TYRONE Stop: 01/15/21 08:59 Last Admin: 12/16/20 08:07 Dose: 10 mg Documented by: Nitroglycerin (Nitroglycerin Sl 0.4 Mg/Tab Tab) 0.4 mg SL UD PRN PRN Reason: CHEST PAIN Stop: 01/15/21 12:46 Ondansetron HCl (Ondansetron Inj 2 Mg/Ml 2 Ml Vial) 4 mg IV Q6H PRN PRN Reason: Nausea Stop: 01/14/21 16:04 Polyethylene Glycol (Polyethylene (Miralax) 17 Gm Pack) 17 gm PO DAILY PRN PRN Reason: Constipation Stop: 01/14/21 16:04 Prednisone (Prednisone 5 Mg Tab) 5 mg PO DAILY [facility] Stop: 01/16/21 08:59 Rosuvastatin Calcium (Rosuvastatin Calcium 10 Mg Tab) 10 mg PO HS TYRONE Stop: 01/14/21 20:59 Last Admin: 12/15/20 20:00 Dose: 10 mg Documented by:
[2020-12-16 13:57] LABS: Partial Thromboplastin Ratio 1.9
[2020-12-16 14:01] LABS: Partial Thromboplastin Time 48.7 Seconds (21.0-31.0)
[2020-12-16 14:03] LABS: Ferritin 530.3 ng/ml (8-388)
[2020-12-16 14:15] LABS: Hepatitis B Surface Antigen Neg (Neg)
[2020-12-16 14:43] LABS: Hepatitis C IgG 13Yrs+Old_Rflx Neg (Neg)
[2020-12-16] MEDS: DIGOXIN 0.125 MG TAB PO SCH (16:50)
[2020-12-16] MEDS: HEPARIN SODIUM/DEXTROSE 25,000 UNITS/500 ML BAG IV SCH (17:49)
[2020-12-16] MEDS: METOPROLOL TARTRATE 25 MG TAB PO SCH (20:42)
[2020-12-16] MEDS ORDERED: ROSUVASTATIN CALCIUM 10 MG TAB PO SCH (21:00)
[2020-12-17 07:31] LABS: Nucleated RBC # (auto) 0.06 K/uL (0-0); Nucleated RBC % (auto) 0.4 %
[2020-12-17 07:59] LABS: INR 1.8 (0.9-1.1); Prothrombin Time 17.5 Seconds (9.0-12.0)
[2020-12-17 08:00] LABS: Hematocrit (blood only) 42.3 % (37-47); Hemoglobin 14.3 g/dL (12.0-16.0); Immature Granulocytes # (auto) 0.06 K/uL (0.00-0.02); Immature Granulocytes % (auto) 0.4 %; Lymphocytes # (auto) 1.48 K/uL (1.2-3.4); Lymphocytes % (auto) 9.4 %; Mean Corpuscular Hemoglobin 31.3 pg (25-34); Mean Corpuscular Hgb Conc 33.8 g/dL (32-36); Mean Corpuscular Volume 92.6 fL (80-100); Mean Platelet Volume 11.8 fL (7.4-10.4); Monocytes % (auto) 7.7 %; Neutrophils # (auto) 12.93 K/uL (1.4-6.5); Neutrophils % (auto) 82.5 %; Platelet Count 83 K/uL (130-400); Platelet Estimate Decreased (Normal); RDW Coefficient of Variation 15.2 % (11.5-14.5); RDW Standard Deviation 50.5 fL (36.4-46.3); Red Blood Count 4.57 M/uL (4.2-5.4); White Blood Count 15.67 K/uL (4.8-10.8)
[2020-12-17 08:03] LABS: Partial Thromboplastin Time 51.8 Seconds (21.0-31.0)
[2020-12-17 08:08] LABS: Albumin Globulin Ratio 1.1 (0.9-2); Albumin Level 2.6 gm/dl (3.4-5.0); BUN Creatinine Ratio 30.2 (10-20); Bilirubin,Total 1.8 mg/dl (0.2-1); Calcium 8.6 mg/dl (8.5-10.1); Creatinine Clr Calc Pharmacy 29.7 ml/min; Est GFR (African American) 46.6; Est GFR (Non-African American) 40.2; Globulin 2.3 gm/dl (2.5-4.0); Phosphorus 3.2 mg/dl (2.5-4.9); Total Protein 4.9 gm/dl (6.4-8.2)
[2020-12-17] MEDS: FUROSEMIDE 40 MG in SYRINGE 0 ML IV SCH (08:16)
[2020-12-17] MEDS: FAMOTIDINE 20 MG TAB PO SCH ×2 (08:16→20:04)
[2020-12-17] MEDS: METOPROLOL TARTRATE 25 MG TAB PO SCH ×3 (08:16→16:58)
[2020-12-17] MEDS: MONTELUKAST SODIUM 10 MG TABLET PO SCH (08:16)
[2020-12-17] MEDS: ASPIRIN 81 MG ECTAB PO SCH (08:17)
[2020-12-17] MEDS: CLOPIDOGREL BISULFATE 75 MG TAB PO SCH (08:17)
[2020-12-17] MEDS ORDERED: DIGOXIN 0.125 MG TAB PO ONE (08:43)
[2020-12-17] MEDS ORDERED: LORATADINE 10 MG TAB PO SCH (09:00)
[2020-12-17] MEDS ORDERED: FLUTICASONE FUROATE 200MCG 14 PUFFS/INHALER INH SCH (09:00)
[2020-12-17] MEDS ORDERED: predniSONE 5 MG TAB PO SCH (09:00)
[2020-12-17] MEDS ORDERED: FENOFIBRATE NANOCRYSTALLIZED 48 MG TABLET PO SCH (09:00)
[2020-12-17] MEDS ORDERED: MAGNESIUM OXIDE 400 MG TAB PO SCH (09:00)
--- NOTE | 2020-12-17 09:32 | Gastroenterology Progress Note ---
Date of Service December 17, 2020 Assessment & Plan (1) Elevated LFTs: (2) Ischemic cardiomyopathy: (3) PAD (peripheral artery disease): (4) Atrial fibrillation with RVR: Pt is a 70 y/o female seen for newly elevated LFTs. Several cardiac comorbidities including Afib, ischemic cardiomyopathy, PAD, currently appears in decompensated HF. Suspect likely congestive hepatopathy or ischemic injury to liver. However will r/o viral infections, AIH. Renal function, LFTs improving, no signs of acute liver failure or decompensated liver dz. - Trend LFTs - Avoid hypotension - Duplex hepatic vein ordered however per radiologist PV patent on us exam. - F/U on serologies ordered: ZEESHAN, AMA, ASMA, Ceruloplasmin, A1A antitrypsin deficiency, iron profile, ferritin, acute hep a/b/c, HSV1/2, CMV, EBV. - Avoid hepatotoxic meds - GI will follow peripherally, pls recall prn new questions/concerns Admission and Anticipated Discharge Date Admission Date: December 15, 2020 Supervising Physician Co-Signing Physician Notes Attending attestation I have seen, examined this patient, and agree with the findings and above by our mid-level provider SAMMI Riggins, with the following additions: - would consider hemolysis given decline in Plts, HIT is also possibility to explain plt decline given she is on heparin gtt. - LFTs are stable - Would work up for infection given increase in WBC's - US does not suggest obstruction or chronic liver disease Subjective Pt denies abd pain, n/v. Is passing flatus but no BM. LFTs improved some. Review of Systems Review of Systems: All systems reviewed & are unremarkable except as noted in HPI & below Physical Exam Constitutional: WD/WN, vitals as above + thin, well groomed, cooperative and comfortable Eyes: PERRL, conjunctivae normal, anicteric sclerae ENMT: external ear and nose normal, oropharynx normal Respiratory: normal respiratory effort, lungs clear to auscultation Cardiovascular: RRR, no murmur, no edema Gastrointestinal (Abdomen): normal bowel sounds, soft, nontender, no hepatosplenomegaly Skin: no rashes, warm and dry no jaundice Neurologic: Motor/Sensory: no asterixis Psychiatric: A+Ox3, euthymic affect Lymphatic: no lymphedema Results & Data ([place]) Vital Signs (Past 12 Hours) Vital Signs Temp Pulse Resp BP Pulse Ox 12/17/20 08:00 36.5 C 106 H 18 88/63 L 96 12/17/20 04:07 36.7 C 125 H 18 101/60 94 12/16/20 23:18 36.4 C L 108 H 20 86/54 L 98
--- NOTE | 2020-12-17 10:47 | Cardiology Progress Note ---
Date of Service December 17, 2020 Assessment & Plan (1) Atrial fibrillation with RVR: (2) Acute decompensated heart failure: (3) PAD (peripheral artery disease): (4) Tobacco use: (5) Ischemic cardiomyopathy: (6) Non compliance w medication regimen: (7) Dysarthria: (8) Chronic passive congestion of liver: (9) S/P AVR: She does carry a very complex cardiac history which is only worsened by her noncompliance. She presents in new onset atrial fibrillation and it sounds as though she is been symptomatic for several months now. Most recent PCP note from August notes that she was tachycardic at that time. The pathophysiology and treatment options for atrial fibrillation were discussed with her at great lengths. Heart rates remain elevated and minimal urine output despite IV diuretics. Does not examine his volume overloaded at this time. We will hold further diuretics at this time in order to support blood pressure so as to allow further beta-brittanie titration to control rates. Continue digoxin and heparin drip Echocardiogram shows further reduction of LV systolic function with preserved function of her aortic valve homograft Severe mitral tricuspid regurgitation is present. Given the progression of her heart disease along with her medical noncompliance I believe her prognosis is poor at this time. Would consider palliative care consultation to discuss goals of care with the patient and her Admission and Anticipated Discharge Date Admission Date: December 15, 2020 Subjective Patient seen and examined, chart reviewed. States that her breathing has improved since admission. Feels very tired today reports not sleeping well. Palpitations have improved but not completely subsided. She denies any chest pain, lightheadedness or dizziness. Telemetry reviewed: Atrial fibrillation with continued rapid ventricular response in the 100s to 120s. Review of Systems Review of Systems: All systems reviewed & are unremarkable except as noted in HPI & below Physical Exam Physical Exam: General: Awake, alert and oriented x 3. No acute distress. HEENT: Normocephalic, atraumatic. Pupils equal, round and reactive to light and accommodation. Extraocular muscles are intact. Anicteric sclera. Moist mucous membranes. Neck: No JVD. No bruit. Cardiovascular: irregularly irregular, unable to appreciate murmur, rub or gallop. Pulmonary: Clear to auscultation bilaterally. No rales, rhonchi, or wheezing. Abdomen: Bowel sounds x 4, soft. No rebound, guarding or tenderness. No organomegaly. Extremities: No clubbing, cyanosis or edema. +2 pedal pulses bilaterally. Skin: Warm and dry. Results & Data ([facility]) Vital Signs (Past 12 Hours) Vital Signs Temp Pulse Resp BP Pulse Ox 12/17/20 08:00 36.5 C 106 H 18 88/63 L 96 12/17/20 04:07 36.7 C 125 H 18 101/60 94 12/16/20 23:18 36.4 C L 108 H 20 86/54 L 98
--- NOTE | 2020-12-17 12:22 | XRay Report ---
XR chest 2V PA/lateral CLINICAL HISTORY: Suspected pneumonia COMPARISON STUDY: 12/15/2020 FINDINGS: The heart is enlarged. There are postsurgical changes of a midline sternotomy. There are sm all bilateral pleural effusions left greater than right. There are multifocal airspace opacities poss ibly representing a multifocal pneumonitis. There is a line shadow paralleling the left lower chest w all. This likely represents a skinfold. Were there to be clinical concern over the presence of a pneu mothorax, additional views could be obtained in follow-up.[ IMPRESSION: 1. Cardiomegaly and small bilateral pleural effusions left greater than right 2. Multifocal airspace opacities most pronounced within the left lower lung zone. A multifocal pneumo marleny is favored over asymmetric pulmonary edema. Clinical and radiographic follow-up is recommended ACT 112: Negative or not required by law. Electronically signed by: Bahman Oconnor M.D. 12/17/2020 12:21 PM
--- NOTE | 2020-12-17 12:32 | Hospitalist Progress Note ---
Date of Service December 17, 2020 Assessment & Plan (1) Acute decompensated heart failure: This is a 70yo F with a PMH of ischemic cardiomyopathy, h/o aortocoronary bypass in 2001, paroxysmal SVT, RA, PAD (s/p remote axillo-bifemoral bypass), tobacco use, history of cerebral vascular disease with resultant dysarthria and other medical problems listed below who presents with progressive dyspnea on exertion and fatigue over the past 3 weeks and was found to have acute decompensated heart failure and atrial fibrillation with RVR. Acute decompensated Combineb heart failure Ischemic cardiomyopathy Dyspnea on exertion x 3 weeks. JVD and rales on auscultation. BNP >35,000, troponin 0.051 CXR with cardiomegaly with pulmonary edema EKG with A fib with RVR, LAD, non-specific intra-ventricular conduction block (seen previously) Received 40mg IV Lasix in ED. Will Continue 40mg IV Lasix BID, almanza catheter ordered for strict I&Os, daily weights Echo ordered (last on file from 2011 with moderate LV systolic dysfunction, EF 30-34% with history of anteroseptal, apical, anterior scar on past nuclear stress testing) Repeat echo showed further deterioration of EF to 15 to 20%. Trend troponin, monitor on telemetry Need to reconcile medication with [facility] tomorrow Cardiology consult -appreciate input and recommendation We will add Lopressor 25 mg twice daily-she was getting long-acting beta-brittanie 50 mg daily as an outpatient Lasix on hold due to low blood pressure even though he has been making less urine Condition has not been improving and prognosis remains very poor (2) Atrial fibrillation with RVR: Has history of paroxysmal SVT Now has atrial fibrillation with RVR and IVCD Received 1 dose of IV Lopressor 2.5 mg and will continue 2.5 unit every 6 hourly as needed Received 1 dose of oral Lopressor 25 mg-further recommendation as per high scaler Has been on digoxin 125 mcg daily and will continue for now Will start intravenous heparin low-dose without bolus Will need prolonged anticoagulation Rate is not yet controlled-heart rate still remains at around 110s to 120s Elevated INR INR elevated at 1.7. Denies taking coumadin. Platelets, AST/ALT/alk phos all WNL No history of known liver disease Repeat CMP and coags tomorrow Consider liver U/S-remained unremarkable INR remains elevated at 1.8 Elevated LFTs Her INR was elevated at 1.7 on admission with normal LFTs LFTs next day skyrocketed Likely secondary to hepatic congestion/ischemia GI service has been consulted for further evaluation and recommendation LFTs remains elevated without any significant improvement (3) Non compliance w medication regimen: (4) Ischemic cardiomyopathy: As above Status post aortic valve replacement Increased troponin Possible myocardial demand ischemia Doubt any ACS (5) PAD (peripheral artery disease): Continue aspirin and Plavix (6) Rheumatoid arthritis: Has been on hydroxychloroquine No acute arthritis at this time Hydroxychloroquine has been on hold (7) Tobacco use: Tobacco use Has been smoking for 35+ years, quit 10 days ago Smoking cessation education PAD Continue aspirin, plavix, statin DVT Ppx: IV heparin Code status: FULL PCP: GREG Li w/ Bakari Crenshaw Dispo: Admitted to PCU. Discharge planning ordered Prognosis remains poor Will discuss with the Will consult palliative care for further direction of management after discussing with the . 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 in past following possible unplanned extubation She denies any symptoms as of this morning Her latest clinic note from her doctor's office and medications placed have been scanned in the chart Her home medications have been updated which are as follows: Singulair 10 mg daily, aspirin 81 mg daily, calcium carbonate 1 tablet daily, Ismo 60 mg daily, metoprolol succinate 50 mg daily, naproxen 500 mg at night, Nitrostat 0.4 mg as directed, magnesium oxide 400 mg daily, famotidine 20 mg twice daily, Combivent Respimat, digoxin 125 mcg daily, fenofibrate 54 mg daily, lisinopril 10 mg daily, rosuvastatin 10 mg daily, Claritin 10 mg daily, Pulmic ort 180 mcg twice daily, hydroxyzine 50 mg 3 times daily as needed, furosemide 20 mg twice daily, hydroxychloroquine 200 mg daily, Plavix 75 mg daily, prednisone 5 mg daily, albuterol nebs every 4 hourly as needed. 12/17/2020 The patient was seen and examined in telemetry unit She remains generally weak and lethargic but denies any significant symptoms Denies any chest pain and/or palpitation, any abdominal pain nausea and or vomiting Review of Systems Review of Systems: All systems reviewed and are unremarkable except as noted below Respiratory: + dyspnea on exertion Neurologic: + generalized weakness Physical Exam Physical Exam: Lying in bed comfortably Constitutional: + acute distress (Minimal shortness of breath at rest), + ill appearing and + thin; + not well nourished Eyes: PERRL, conjunctivae normal, anicteric sclerae ENMT: external ear and nose normal, oropharynx normal Neck: trachea midline, no thyromegaly Respiratory: + respiratory distress (Minimal distress at rest) Auscultation: + diminished lung sounds and + crackles (Minimal bibasilar crackles) Cardiovascular: Rate/Rhythm: + irregularly irregular Heart Sounds: + murmur (2/6 ejection systolic murmur over precordium) Palpation: + abnormal PMI Extremities: + edema (Trace bilateral leg edema) Gastrointestinal (Abdomen): Inspection/Auscultation: normal bowel sounds; abdomen not distended Percussion/Palpation: abdomen soft; abdomen nontender Musculoskeletal: No acute arthritis in any joint Neurologic: Alert, awake and oriented. Has dysarthria secondary to past vocal cord injury and she is intellectually impaired Psychiatric: Insight: + poor insight Lymphatic: no cervical or axillary lymphadenopathy Results & Data Results & Data ([facility]) Vital Signs (Past 12 Hours) Vital Signs Temp Pulse Resp BP Pulse Ox 12/17/20 11:57 36.5 C 115 H 17 98/63 L 94 12/17/20 08:00 36.5 C 106 H 18 88/63 L 96 12/17/20 04:07 36.7 C 125 H 18 101/60 94 Laboratory Results Short CBC 12/17/20 Range/Units 07:10 WBC 15.67 H (4.8-10.8) K/uL Hgb 14.3 (12.0-16.0) g/dL Hct 42.3 (37-47) % Plt Count 83 L D (130-400) K/uL BMP 12/17/20 07:10 Sodium 137 Potassium 4.0 D Chloride 103 Carbon Dioxide 26 BUN 41 H Creatinine 1.35 H Glucose 104 H Calcium 8.6 Cardiac Enzymes 12/16/20 Range/Units 17:20 Troponin I 0.199 H* (0-0.045) ng/ml Liver Function 12/17/20 12/17/20 Range/Units 07:10 11:06 Total Bilirubin 1.8 H (0.2-1) mg/dl Direct Bilirubin 0.7 H (0-0.2) mg/dl AST 298 H (15-37) U/L ALT 304 H (12-78) U/L Alkaline Phosphatase 131 H (45-117) U/L Albumin 2.6 L (3.4-5.0) gm/dl Medications Administered Current Inpatient Medications Acetaminophen (Acetaminophen 325 Mg Tab) 650 mg PO Q4H PRN PRN Reason: Pain or Fever Stop: 01/14/21 16:04 Albuterol (Albuterol 0.083% Nebu Soln 3 Ml Vial) 2.5 mg INH Q4H PRN PRN Reason: Adequate Ventilation Stop: 01/15/21 12:17 Aspirin (Aspirin 81 Mg Ectab) 81 mg PO DAILY [facility] Stop: 01/15/21 08:59 Last Admin: 12/17/20 08:17 Dose: 81 mg Documented by: Clopidogrel Bisulfate (Clopidogrel Bisulfate 75 Mg Tab) 75 mg PO DAILY [facility] Stop: 01/15/21 08:59 Last Admin: 12/17/20 08:17 Dose: 75 mg Documented by: Digoxin (Digoxin 0.125 Mg Tab) 0.125 mg PO DAILY@1600 [facility] Stop: 01/15/21 15:59 Last Admin: 12/16/20 16:50 Dose: 0.125 mg Documented by: Famotidine (Famotidine 20 Mg Tab) 20 mg PO BID [facility] Stop: 01/14/21 20:59 Last Admin: 12/17/20 08:16 Dose: 20 mg Documented by: Fluticasone Furoate (Fluticasone Furoate 200mcg 14 Puffs/Inhaler) 1 puffs INH DAILY [facility] Stop: 01/16/21 08:59 Last Admin: 12/17/20 08:18 Dose: 1 puffs Documented by: Hydroxychloroquine Sulfate (Hydroxychloroquine Sulfate 200 Mg Tab) 200 mg PO HS [facility] Stop: 01/14/21 20:59 Last Admin: 12/15/20 20:00 Dose: 200 mg Documented by: Heparin Sodium/Dextrose (Heparin Sodium/Dextrose) 25,000 units in 500 mls @ 14 mls/hr IV .Q24H [facility]; Protocol Stop: 01/14/21 15:44 Last Titration: 12/17/20 09:46 Dose: 700 units/hr, 14 mls/hr Documented by: Furosemide 40 mg/ Syringe 4 mls @ 4 mls/min IV BID17 [facility] Stop: 01/14/21 20:59 Last Admin: 12/17/20 08:16 Dose: 4 mls/min Documented by: Loratadine (Loratadine 10 Mg Tab) 10 mg PO DAILY [facility] Stop: 01/16/21 08:59 Last Admin: 12/17/20 08:17 Dose: 10 mg Documented by: Magnesium Oxide (Magnesium Oxide 400 Mg Tab) 400 mg PO DAILY [facility] Stop: 01/16/21 08:59 Last Admin: 12/17/20 08:17 Dose: 400 mg Documented by: Metoprolol Tartrate (Metoprolol Tartrate 1 Mg/Ml Vial) 2.5 mg IV Q6H PRN PRN Reason: HR >130 Stop: 01/14/21 17:51 Last Admin: 12/16/20 13:19 Dose: 2.5 mg Documented by: Metoprolol Tartrate (Metoprolol Tartrate 25 Mg Tab) 12.5 mg PO Q6 [facility] Stop: 01/16/21 11:59 Montelukast Sodium (Montelukast Sodium 10 Mg Tablet) 10 mg PO DAILY [facility] Stop: 01/15/21 08:59 Last Admin: 12/17/20 08:16 Dose: 10 mg Documented by: Nitroglycerin (Nitroglycerin Sl 0.4 Mg/Tab Tab) 0.4 mg SL UD PRN PRN Reason: CHEST PAIN Stop: 01/15/21 12:46 Ondansetron HCl (Ondansetron Inj 2 Mg/Ml 2 Ml Vial) 4 mg IV Q6H PRN PRN Reason: Nausea Stop: 01/14/21 16:04 Polyethylene Glycol (Polyethylene (Miralax) 17 Gm Pack) 17 gm PO DAILY PRN PRN Reason: Constipation Stop: 01/14/21 16:04 Prednisone (Prednisone 5 Mg Tab) 5 mg PO DAILY [facility] Stop: 01/16/21 08:59 Last Admin: 12/17/20 08:17 Dose: 5 mg Documented by:
[2020-12-17] MEDS ORDERED: AZITHROMYCIN 500 MG in DEXTROSE 5% 250 ML IV SCH (15:45)
[2020-12-17] MEDS ORDERED: levoFLOXacin/D5W 750 MG/150 ML BAG IV SCH (15:45)
[2020-12-17] MEDS ORDERED: DOXYCYCLINE HYCLATE 100 MG in DEXTROSE 5% 100 ML IV SCH (16:00)
[2020-12-17] MEDS: AZTREONAM 1,000 MG in DEXTROSE 5% 100 ML IV SCH (16:23)
[2020-12-17] MEDS: HEPARIN SODIUM/DEXTROSE 25,000 UNITS/500 ML BAG IV SCH (16:41)
[2020-12-17] MEDS: DIGOXIN 0.125 MG TAB PO SCH (16:58)
[2020-12-17] MEDS: METOPROLOL TARTRATE 1 MG/ML VIAL IV PRN (21:49)
[2020-12-18] MEDS: AZTREONAM 1,000 MG in DEXTROSE 5% 100 ML IV SCH (00:02)
[2020-12-18] MEDS: METOPROLOL TARTRATE 25 MG TAB PO SCH (00:22)
[2020-12-18] MEDS ORDERED: Standard 16mcg/mL; 4 MG in 250 mL for BRADYCARDIA IV SCH (04:15)
[2020-12-18 04:54] LABS: iSTAT Arterial Blood Gas HCO3 30 meg/L (19-24); iSTAT Arterial Blood Gas pCO2 43 mmHg (35-46); iSTAT Arterial Blood Gas pH 7.46 (7.35-7.45); iSTAT Arterial Blood Gas pO2 307 mmHg (80-95); iSTAT Carbon Dioxide 32 mmol/L (24-31); iSTAT Hematocrit 34 % (37-47); iSTAT Hemoglobin 11.6 g/dl (12.0-16.0); iSTAT Potassium 5.6 mmol/L (3.3-5.0); iSTAT Sodium 140 mmol/L (135-144)
[2020-12-18 05:10] LABS: INR 4.7 (0.9-1.1); Partial Thromboplastin Ratio 3.3
[2020-12-18 05:14] LABS: Partial Thromboplastin Time 85.7 Seconds (21.0-31.0)
[2020-12-18 05:16] LABS: Albumin Globulin Ratio 0.9 (0.9-2); BUN Creatinine Ratio 21.1 (10-20); Creatinine Clr Calc Pharmacy 18.8 ml/min; Est GFR (African American) 26.9; Est GFR (Non-African American) 23.2; Globulin 2.3 gm/dl (2.5-4.0); Magnesium 2.7 mg/dl (1.8-2.4); Potassium 5.8 mmol/L (3.5-5.1); Total Protein 4.3 gm/dl (6.4-8.2); Troponin I 0.244 ng/ml (0-0.045)
[2020-12-18] MEDS ORDERED: METOCLOPRAMIDE HCL INJ 5 MG/ML 2 ML VIAL IV ONE (05:20)
[2020-12-18 05:21] LABS: Basophils # (auto) 0.04 K/uL (0-0.2); Basophils % (auto) 0.3 %; Echinocytes 1+; Hematocrit (blood only) 39.7 % (37-47); Hemoglobin 12.6 g/dL (12.0-16.0); Immature Granulocytes # (auto) 0.33 K/uL (0.00-0.02); Immature Granulocytes % (auto) 2.4 %; Lymphocytes # (auto) 1.61 K/uL (1.2-3.4); Lymphocytes % (auto) 11.6 %; Mean Corpuscular Hemoglobin 31.4 pg (25-34); Mean Corpuscular Hgb Conc 31.7 g/dL (32-36); Mean Platelet Volume 12.4 fL (7.4-10.4); Monocytes # (auto) 0.52 K/uL (0.11-0.59); Monocytes % (auto) 3.8 %; Neutrophils # (auto) 11.33 K/uL (1.4-6.5); Neutrophils % (auto) 81.9 %; Nucleated RBC # (auto) 0.58 K/uL (0-0); Nucleated RBC % (auto) 4.2 %; Platelet Count 28 K/uL (130-400); Platelet Estimate SIGNIFIC DECREASED (Normal); Polychromasia 1+; RDW Coefficient of Variation 15.5 % (11.5-14.5); Red Blood Count 4.01 M/uL (4.2-5.4); White Blood Count 13.83 K/uL (4.8-10.8)
[2020-12-18] MEDS ORDERED: ONDANSETRON INJ 2 MG/ML 2 ML VIAL IV PRN (05:27)
[2020-12-18] MEDS ORDERED: ONDANSETRON 4 MG OD TAB SL PRN (05:27)
[2020-12-18] MEDS ORDERED: LORazepam 0.5 MG/1 ML VIAL IV PRN (05:27)
[2020-12-18] MEDS ORDERED: ATROPINE SULFATE 1% OP SOLN 5 ML BTL SL PRN (05:27)
[2020-12-18] MEDS ORDERED: MoRPHine SULF/NSS 250 MG/250 ML BTL IV SCH (05:30)
--- NOTE | 2020-12-18 05:34 | Procedure Note ---
Procedure Note Date of Service December 18, 2020 Procedure: Femoral Central Line Placement Attending: Dr. Ware APC: Víctor Henry PA-C Indication: Central Drug Administration, Poor Venous Access, Multiple Lab Draws Necessary, etc. Anesthesia: None Emergent consent implied in the setting of cardiac arrest and need for access for administration of pressors and other resuscitative medications as well as need for labs. A time-out was completed verifying correct patient, procedure, site, positioning, and implants(s) or special equipment if applicable. Patients RIGHT Groin was cleansed and draped in the typical sterile fashion using Chloraprep. The Femoral Vein and Femoral Artery were identified using ultrasound. The Femoral Vein was cannulated under direct ultrasound guidance using an introducer needle on a syringe. Good venous blood return was maintained prior to removal of syringe from introducer needle. Using Seldinger Technique, a guide wire was advanced through the introducer needle without resistance. The introducer needle was removed and ultrasound images were obtained of the guide wire within the Femoral Vein and saved to the patients medical record. A small incision was made in penetrating fashion at the guide wire insertion site utilizing an 11 blade scalpel. The dilator was advanced to the vessel without resistance. The dilator was exchanged for the triple lumen catheter which was advanced into the vessel without resistance. The guide wire was removed intact from the catheter without issue. Claves were placed on each catheter tip with confirmation of good blood flow from each lumen. Each port was easily flushed with sterile saline. The catheter was placed at the hub and sutured in place. BioPatch was applied to the catheter and a sterile Tegaderm dressing was applied over the catheter with careful attention to sterility. Patient tolerated procedure well. No immediate complications were met. Images obtained are saved for permanent record Procedural Ultrasound Guidance: Procedure Date: 12/18/2020 Indication: Pressors, Poor access, Cardiac arrest Attending: Dr. Ware APC: Víctor Henry PA-C Artery AND Vein visualized: YES Compressible Vein: YES Guidewire or Short Catheter seen in vein prior to dilation: YES Line confirmed in Vein with ultrasound: YES Coding CPT Codes Tubes, Drains, and Vasc Access - Tubes, Drains, and Vasc Access: [id number] Insertion Of Non-tunneled Catheter Age 7 Yrs> ([id number]) Tubes, Drains, and Vasc Access - Tubes, Drains, and Vasc Access: [id number] Ultrasound Guidance For Vascular ([id number]) [facility] Procedure Codes (Charges) Tubes, Drains, and Vasc Access Procedure 1: Tubes, Drains, and Vasc Access: [id number] Insertion Of Non-tunneled Catheter Age 7 Yrs> Procedure 2: Tubes, Drains, and Vasc Access: [id number] Ultrasound Guidance For Vascular
--- NOTE | 2020-12-18 05:34 | Critical Care Consultation ---
Date of Consultation December 18, 2020 Assessment & Plan (1) Cardiac arrest: ANGEL NIX was called at 0340. When I arrived to patient room, CPR was in progress. Nursing staff was preparing to deliver first dose of epinephrine. Airway was obtained by myself. Please see separate note for procedure. Patient received a total of 6.5 A of epinephrine and 3 A of bicarb. Patient was placed on dopamine initially followed by Levophed and finally epinephrine. Hospitalist contacted family member who wishes to proceed with current ACLS protocol at this time. Eventually, after ROSC was achieved the first time, the patient lost pulses again shortly after. Initial downtime was 27 minutes followed by a second round of 7 minutes of CPR. Total downtime 34 minutes. I was able to obtain ABG using ultrasound only. Patient was oxygenating well per ABG. We are unable to obtain peripheral blood pressures, however pulses were palpable. Given poor peripheral access and need for multiple vasopressors, I did place a central line in the RIGHT femoral vein emergently. We did continue with Lev ophed, epinephrine, and dopamine through the central line. Patient was subsequently transferred to the ICU. Consideration was given regarding possibility of therapeutic hypothermia protocol, however given the downtime, patient's baseline peripheral vascular disease, baseline EF of 15%, and concerns for poor outcome at baseline, we did elect to move the patient to the ICU so the family could be contacted to discuss moving forward. Patient is too unstable to obtain any further imaging modalities at this time anyway. Upon arrival in the ICU, the patient's daughter, Angela, presented to bedside. I had an extensive conversation with her at bedside. She reports to me that she is the eldest daughter, however her boyfriend, Marcello, is designated as her power of securities attorney. She does recommend that I contact him regarding moving forward, however she does wish to discontinue care at this time. I did reach out to the patient's boyfriend, Marcello. I explained the gravid situation at this point. Together, Marcello and Angela decided to transition the patient to comfort measures only. I discussed discontinuing all cardiac medications and removing endotracheal tube and providing comfort gear care including morphine and Ativan as needed. They were comfortable with this decision making. After all family members were able to say goodbye the of phone, we did start morphine drip and provide initial dose of Ativan. ET tube was removed. Patient's daughter is at bedside. Patient is with agonal respirations at this time. I have personally spent 120 minutes of critical care time in the direct management of this patient. This is a life/limb threatening event. This includes time spent evaluating patient, direct bedside care, chart review, placing orders, interpretation of diagnostic studies, discussion with consultants, patient, and family members, as well as other required patient management activities. This time is exclusive of all separately billable procedures, and teaching time and separate from and in addition to any other critical care service time. Supervising Physician Co-Signing Physician Notes Discussed with DIANE overnight. Chart and imaging reviewed. Patient was in progress of palliative care discussions when she arrested. Despite aggressive efforts pt continued to require high doses of pressors. Family made decision to transition to comfort care and patient . See EMR for additional details. History of Present Illness Attending Physician: Rex Sheppard MD History of Present Illness A CODE BLUE was called to room 241-2. Per nursing report, the patient had developed acute onset of bradycardia followed by an organized rhythm. Patient was found to be unresponsive and without a pulse. CPR was initiated by nursing staff. Upon my arrival, chest compressions had been started and nursing staff was ready to administer initial dose of epinephrine. [id number] ventilation was being performed by nursing staff. Unable to obtain history secondary to current state of extremis. Allergies Allergy/AdvReac Type Severity Reaction Status Date / Time cephalexin Allergy Intermediate HIVES Verified 12/16/20 09:00 Cephalosporins Allergy Intermediate RASH Verified 12/15/20 12:41 fexofenadine Allergy Intermediate SEWLLING Verified 12/16/20 09:00 Penicillins Allergy Mild Unknown Verified 12/16/20 09:00 prednisone AdvReac Mild SWELLING Verified 12/16/20 09:00 Home Medications Medication Instructions Recorded Confirmed Type aspirin 81 mg PO DAILY 12/15/20 12/15/20 History clopidogrel 75 mg PO DAILY 12/15/20 12/15/20 History digoxin 125 mcg PO DAILY 12/15/20 12/15/20 History famotidine 20 mg PO BID 12/15/20 12/15/20 History hydroxychloroquine 200 mg PO HS 12/15/20 12/15/20 History ipratropium-albuterol [Combivent] 1 spray INHALATION DAILY 12/15/20 12/15/20 History montelukast 10 mg PO PM 12/15/20 12/16/20 History rosuvastatin 10 mg PO HS 12/15/20 12/15/20 History Nitrostat 0.04 mg DIRECTED 12/16/20 12/16/20 History Tums DIRECTED 12/16/20 History albuterol sulfate 2.5 mg INHALATION Q4H PRN 12/16/20 12/16/20 History budesonide [Pulmicort Flexhaler] 2 inh INHALATION BID 12/16/20 12/16/20 History clopidogrel 75 mg PO DAILY 12/16/20 12/16/20 History digoxin 125 mcg PO DAILY 12/16/20 12/16/20 History famotidine 20 mg PO BID 12/16/20 12/16/20 History fenofibrate 54 mg PO DAILY 12/16/20 12/16/20 History furosemide 20 mg PO BID 12/16/20 12/16/20 History hydroxychloroquine 200 mg PO QAM 12/16/20 12/16/20 History hydroxyzine HCl 50 mg PO TID PRN 12/16/20 12/16/20 History ipratropium-albuterol [Combivent INHALATION 12/16/20 History Respimat] isosorbide mononitrate 60 mg PO QAM 12/16/20 12/16/20 History lisinopril 10 mg PO DAILY 12/16/20 12/16/20 History loratadine [Claritin] 10 mg PO DAILY 12/16/20 12/16/20 History magnesium oxide 400 mg PO DAILY 12/16/20 12/16/20 History metoprolol succinate 50 mg PO 12/16/20 History naproxen 500 mg PO PM 12/16/20 12/16/20 History prednisone 5 mg PO DAILY 12/16/20 12/16/20 History rosuvastatin 10 mg PO PM 12/16/20 12/16/20 History zoster vaccine live (PF) [Zostavax ml SUBCUT 12/16/20 History (PF)] Patient History Medical History Ischemic cardiomyopathy Osteoporosis PAD (peripheral artery disease) s/p remote axillo-bifemoral bypass Paroxysmal SVT (supraventricular tachycardia) Rheumatoid arthritis Tobacco use Surgical History H/O aortic valve replacement homograft AV replacement 2001 H/O ventral hernia repair S/P ascending aortic aneurysm repair possibly aortic aneurysm dissection repair in 1999 at time of initial bypass surgery at [facility] Family History Other Heart disease Social History Smoking Status: Former smoker Years Smoked: 35; Smoking End Date: quit 10 days ago; Second Hand Exposure: No; Do You Dip or Chew Tobacco: No; Tobacco Cessation Education Requested by Patient: No Hx Alcohol Use: No Hx Substance Use: No Preferred Language: Chinese Communication Ability: Effective Fitness Supervisor Required: No Beliefs That Will Affect Care: None Current Living Situation: Spouse Other Information That Helps Us Care for You: No Feels Safe at Home: Yes Safety Concerns: Feels Safe At This Time Assistive Devices: Oxygen - Continuous Review of Systems Review of Systems: Unobtainable due to cognitive status and Unobtainable due to reduced consciousness Physical Exam Physical Exam: Unable to immediately obtain secondary to active compressions in the code situation. Results & Data Results & Data ([facility]) Vital Signs (Past 12 Hours) Vital Signs Temp Pulse Pulse Resp BP BP Pulse Ox 12/18/20 05:11 109 H 20 100 12/18/20 04:30 120 H 20 100 12/18/20 00:32 116 H 12/17/20 23:56 36.5 C 110 H 18 113/81 100 12/17/20 21:49 132 H 98/57 L 12/17/20 19:33 36.7 C 112 H 21 95/62 L 96 Coding Level of Care Code Critical Care 1st 30-74 mins Diagnoses Cardiac arrest I46.9 Time Spent (min) 120
--- NOTE | 2020-12-18 05:34 | Procedure Note ---
Procedure Note Date of Service December 18, 2020 APC: Víctor Henry PA-C. Attending: Dr. Ware A time-out was completed verifying correct patient, procedure, site, positioning. Patient was evaluated and required intubation for respiratory arrest in the setting of cardiac arrest. Sedative agent used: Nono Paralysis agent used: None Emergent consent was implied given patients rapidly declining clinical status and need for airway protection. The patient was prepared in the appropriate fashion. No sedation required. The patient was easily ventilated using [id number] to achieve adequate oxygenation. A 7.5 Tajik endotracheal tube was placed under GlideScope to 24 cm at the lip. The stylette was removed and balloon was inflated with 10mL of air. Appropriate Colorimetric change was appreciated. Bilateral breath sounds were heard without air sounds in the abdomen. No post chest x-ray obtained secondary to ongoing code scenario. Patient tolerated the procedure well and there were no immediate complications. Coding CPT Codes Resuscitation - Resuscitation: 88185 Endotracheal Intubation, emergency ([id number]) [facility] Procedure Codes (Charges) Resuscitation Resuscitation: [id number] Endotracheal Intubation, emergency
[2020-12-18] MEDS ORDERED: DOPamine 400MG / 250ML D5W IV ONE (06:13)
[2020-12-18] MEDS ORDERED: SODIUM BICARB 8.4% INJ 50 MEQ/50 ML SYR IV ONE (06:13)
[2020-12-18] MEDS ORDERED: SODIUM CHLORIDE 0.9% 10ML FLUSH IV ONE (06:13)
[2020-12-18] MEDS ORDERED: SODIUM CHLORIDE 0.9% 250 ML BAG IV ONE (06:13)
--- NOTE | 2020-12-18 06:25 | Death Pronouncement Note ---
Date of Service December 18, 2020 Pronouncement Note Admission Date Admission Date: December 15, 2020 Date and Time of Date of : 12/18/20 Time of : 06:14 PCOD Preliminary cause of : Heart failure Contributing Factors (1) Cardiac arrest: Hospital Course Hospital Course: Patient initially admitted with acute decompensated heart failure in the setting of A. fib. Patient with known EF of approximately 15%. This had declined over the last several years. Patient with significant past medical history including prior ascending aortic aneurysm repair as well as femoral arterial bypass grafting. Patient had cardiac arrest at 0430 and underwent heroic resuscitation measures including multiple rounds of epinephrine, bicarb, and vasoactive medications. Her total downtime was 34 minutes. After extensive conversation with POA and patient's daughters, decision was made to proceed with comfort measures only at this time. Patient was without a pulse, no discernible heart rhythm on monitor, and ceased to breathe at 0614 Additional Data Confirmation of : no pulse, no respirations, no heart sounds and pupils fixed and dilated Family: at bedside Attending/PCP notified?: No Attending physician: Rex Sheppard MD Was code activated?: No Autopsy requested?: No school psychological examiner notified?: No Organ bank notified?: No Advance directives: No Coding Level of Care Code None Diagnoses Cardiac arrest I46.9 Time Spent (min) 20
[2020-12-18 07:12] LABS: Phosphorus 8.5 mg/dl (2.5-4.9)
--- NOTE | 2020-12-18 08:50 | Discharge Summary ---
Date of Service December 18, 2020 Admission HPI Per Admitting Provider This is a 70yo F with a PMH of ischemic cardiomyopathy, h/o aortocoronary bypass in 2001, paroxysmal SVT, RA, PAD (s/p remote axillo-bifemoral bypass), tobacco use, history of cerebral vascular disease with resultant dysarthria and other medical problems listed below who presents with progressive dyspnea on exertion and fatigue over the past 3 weeks. at bedside also mentions poor oral intake and weight loss over the past few months. Patient follows with GREG Neal of [facility] and Dr. Oseguera of cardiology but has not been to follow up appointment since 2019. Endorses orthopnea and PND. brought patient in due to concerning breathing pattern he noticed overnight. Patient denies any chest pain or palpitations. It is unclear what medication patient is taking. Patient is uncertain. wrote down medication bottles he saw at home, which do not look to have been filled since 2019. Will clarify with [facility] office tomorrow. Patient has declined a follow up echocardiogram on previous cardiology appointments but last one on record from 2011 shows moderate left ventricular systolic dysfunction, left ventricular ejection fraction 30-34 percent with history of anteroseptal, apical, anterior scar on past nuclear stress testing. Has not smoked a cigarette in 10 days. Denies fever, chills, lightheadedness, headache, chest pain, palpitations, nausea, vomiting, abdominal pain, dysuria, diarrhea or constipation. In ED, patient found to be tachycardic with A Fib with RVR ranging from 101-140. Labwork significant for INR of 1.7, Cr 1.41 (baseline unknown), troponin 0.051, pro-BNP >35,000. Covid, Flu A/B and RSV negative. CXR with cardiomegaly with pulmonary edema. Admission Exam Per Admitting Provider Physical Exam: General Appearance: vitals as above, NAD, sitting up in bed, appears chronically ill, frail Head: normocephalic, atraumatic Eyes: normal inspection, PERRL, conjunctivae normal, anicteric sclerae ENT: external ear and nose normal, oropharynx normal Neck: normal visual inspection, trachea midline, no thyromegaly Respiratory: normal respiratory effort, bibasilar rales, no wheeze or rhonchi. No accessory muscle use Cardiovascular: tachycardic irregular rate & rhythm, no murmur appreciated, normal peripheral pulses, no BLE edema. Vessels: + JVD Chest: Sternotomy scar, normal inspection of chest Abdomen/GI: normal bowel sounds, soft, nontender, no hepatosplenomegaly Extremities/Musculoskeletal: no cyanosis or clubbing, extremities motor strength 5/5 Neurologic: PERRL, EOMI, accommodation nl, no face palsy, + dysarthria (chronic), CN's II-XI intact bilaterally and moves all extremities Psychiatric: A+Ox3, euthymic affect Skin: no rashes, normal color, warm/dry Principal Diagnosis :Primary Cause of :Heart Failure With H/O Ischemic Cardiomyopathy,S/P AVR,Atrial Fibrillation withRVR,PVD Discharge Data Allergies Allergy/AdvReac Type Severity Reaction Status Date / Time cephalexin Allergy Intermediate HIVES Verified 12/16/20 09:00 Cephalosporins Allergy Intermediate RASH Verified 12/15/20 12:41 fexofenadine Allergy Intermediate SEWLLING Verified 12/16/20 09:00 Penicillins Allergy Mild Unknown Verified 12/16/20 09:00 prednisone AdvReac Mild SWELLING Verified 12/16/20 09:00 Consultations 12/15/20 16:20 ED Decision to Admit Stat 12/16/20 08:00 Consult Cardiology Routine 12/16/20 08:35 Consult Gastroenterology Routine 12/17/20 14:09 Consult Palliative Care Routine 12/18/20 05:27 Consult Case Management - Discharge Planning Routine Consult Palliative Care Routine 12/18/20 06:03 Consult User Support Specialist Routine Ordered Studies 12/16/20 08:34 US liver Routine Hospital Course (1) Acute decompensated heart failure: This is a 70yo F with a PMH of ischemic cardiomyopathy, h/o aortocoronary bypass in 2001, paroxysmal SVT, RA, PAD (s/p remote axillo-bifemoral bypass), tobacco use, history of cerebral vascular disease with resultant dysarthria and other medical problems listed below who presents with progressive dyspnea on exertion and fatigue over the past 3 weeks and was found to have acute decompensated heart failure and atrial fibrillation with RVR. Acute decompensated Combineb heart failure Ischemic cardiomyopathy Dyspnea on exertion x 3 weeks. JVD and rales on auscultation. BNP >35,000, troponin 0.051 CXR with cardiomegaly with pulmonary edema EKG with A fib with RVR, LAD, non-specific intra-ventricular conduction block (seen previously) Received 40mg IV Lasix in ED. Will Continue 40mg IV Lasix BID, almanza catheter ordered for strict I&Os, daily weights Echo ordered (last on file from 2011 with moderate LV systolic dysfunction, EF 30-34% with history of anteroseptal, apical, anterior scar on past nuclear stress testing) Repeat echo showed further deterioration of EF to 15 to 20%. Trend troponin, monitor on telemetry Need to reconcile medication with [facility] tomorrow Cardiology consult -appreciate input and recommendation We will add Lopressor 25 mg twice daily-she was getting long-acting beta-brittanie 50 mg daily as an outpatient Lasix on hold due to low blood pressure even though he has been making less urine Condition has not been improving and prognosis remains very poor Discussed with the Significant other on 12/17/2020 Updated about the current deteriorated condition of the patient and Palliative care was consulted The patient suffered a cardiac arrest last night and the resuscitation measure failed She on 12/18/2020 at 0614 hrs (2) Atrial fibrillation with RVR: Has history of paroxysmal SVT Now has atrial fibrillation with RVR and IVCD Received 1 dose of IV Lopressor 2.5 mg and will continue 2.5 unit every 6 hourly as needed Received 1 dose of oral Lopressor 25 mg-further recommendation as per cane loader Has been on digoxin 125 mcg daily and will continue for now Will start intravenous heparin low-dose without bolus Will need prolonged anticoagulation Rate is not yet controlled-heart rate still remains at around 110s to 120s Elevated INR INR elevated at 1.7. Denies taking coumadin. Platelets, AST/ALT/alk phos all WNL No history of known liver disease Repeat CMP and coags tomorrow Consider liver U/S-remained unremarkable INR remains elevated at 1.8 Elevated LFTs Her INR was elevated at 1.7 on admission with normal LFTs LFTs next day skyrocketed Likely secondary to hepatic congestion/ischemia GI service has been consulted for further evaluation and recommendation LFTs remains elevated without any significant improvement (3) Non compliance w medication regimen: (4) Ischemic cardiomyopathy: As above Status post aortic valve replacement Increased troponin Possible myocardial demand ischemia Doubt any ACS (5) PAD (peripheral artery disease): Continue aspirin and Plavix (6) Rheumatoid arthritis: Has been on hydroxychloroquine No acute arthritis at this time Hydroxychloroquine has been on hold (7) Tobacco use: Tobacco use Has been smoking for 35+ years, quit 10 days ago Smoking cessation education PAD Continue aspirin, plavix, statin DVT Ppx: IV heparin Code status: FULL PCP: GREG pedersen/ [facility] Dispo: Admitted to PCU. Discharge planning ordered Prognosis remains poor Will discuss with the Will consult palliative care for further direction of management after discussing with the . Total Time Total Time Spent Total Time Spent (In Minutes): 20 minutes Total Time Includes: Other (Discharge Summery) Discharge Plan Discharge Items Reason For Visit: DECOMPENSTATED HF, A FIB Medications and DC Order Prescriptions: No Action famotidine 20 mg Tablet 20 mg PO BID RF: 0 digoxin 125 mcg (0.125 mg) Tablet 125 mcg PO DAILY RF: 0 hydroxychloroquine 200 mg Tablet 200 mg PO HS RF: 0 clopidogrel 75 mg Tablet 75 mg PO DAILY RF: 0 montelukast 10 mg Tablet 10 mg PO PM RF: 0 aspirin 81 mg Tablet 81 mg PO DAILY RF: 0 Combivent 18-103 mcg/actuation Aerosol 1 spray INHALATION DAILY RF: 0 rosuvastatin 10 mg tablet 10 mg PO HS RF: 0 Tums DIRECTED RF: 0 isosorbide mononitrate 60 mg PO QAM RF: 0 metoprolol succinate 50 mg PO RF: 0 naproxen 500 mg PO PM RF: 0 Nitrostat 0.04 mg DIRECTED RF: 0 magnesium oxide 400 mg (241.3 mg magnesium) Tablet 400 mg PO DAILY RF: 0 famotidine 20 mg PO BID RF: 0 Combivent Respimat 20-100 mcg/actuation Mist INHALATION RF: 0 digoxin 125 mcg (0.125 mg) Tablet 125 mcg PO DAILY RF: 0 fenofibrate 54 mg Tablet 54 mg PO DAILY RF: 0 lisinopril 10 mg Tablet 10 mg PO DAILY RF: 0 rosuvastatin 10 mg Tablet 10 mg PO PM RF: 0 loratadine [Claritin] 10 mg Tablet 10 mg PO DAILY RF: 0 Zostavax (PF) 19,400 unit/0.65 mL Suspension For Reconstitution SUBCUT RF: 0 Pulmicort Flexhaler 180 mcg/actuation Aerosol Powdr Breath Activated 2 inh INHALATION BID RF: 0 hydroxyzine HCl 50 mg Tablet 50 mg PO TID PRN (Reason: Other) RF: 0 furosemide 20 mg Tablet 20 mg PO BID RF: 0 hydroxychloroquine 200 mg Tablet 200 mg PO QAM RF: 0 clopidogrel 75 mg Tablet 75 mg PO DAILY RF: 0 prednisone 5 mg Tablet 5 mg PO DAILY RF: 0 albuterol sulfate 2.5 mg /3 mL (0.083 %) Solution For Nebulization 2.5 mg INHALATION Q4H PRN (Reason: Adequate Ventilation) RF: 0 Admission Data Admit Date/Time: 12/15/20 14:50 Attending Provider: Rex Sheppard Admit Provider: Rex Sheppard Primary Care Provider: Samantha Li Other Providers: Jessica Mari ; Rex Sheppard ; José Miguel Downs ; Hadley Roth ; Marleni Hinson ; Seb Crews ; Ju King ; Brice Cash ; Dahiana Celis ; Rk Sharp ; Sher Page ; Lester Zelaya ; Alla Elizalde ; Roya Latham ; Pat Nickerson ; Kimberlee Valera ; Jason Alejandro ; Sascha Ware
[2020-12-18 11:11] LABS: EBV Nuclear Ag Antibody <18.00 U/mL; EBV Virus Capsid Ag IgG Ab >750.00 U/mL
--- NOTE | 2020-12-18 16:56 | Hospitalist Progress Note ---
Date of Service December 18, 2020 Assessment & Plan Admission and Anticipated Discharge Date Admission Date: December 15, 2020 Subjective Code Blue was called on the patient last night as patient became unresponsive and had no pulse. CPR was initiated and epinephrine was given as per acls protocol. Patient was intubated. Patient significant other who is POA was notified about 5-10 minutes of code blue. He understand the grave situation but wanted to continue code blue for the maximum time possible. But soon patient gained pulse. But after sometime again lost pulse for about another 10 minutes. Significant other was called and notified the critical condition of the patient and asked if family wants to come to hospital and he said daughter may come and later notified daughter is coming and requested try to keep doing what we are doing if possible until daughter comes. Right femoral line was placed and patient was transferred to ICU.Patient never gained consciousness. Almost more than hour after code blue daughter came to the hospital. At that time patient also seemed to be posturing. ICU talked to daughter and significant other and that time patient was made comfort care. Patient at 6:14am today dec 18 2020. Results & Data Results & Data ([facility]) Vital Signs (Past 12 Hours) Vital Signs Pulse Resp BP Pulse Ox 12/18/20 06:15 0 L 0 L 12/18/20 06:00 113 H 23 12/18/20 05:45 112 H 22 106/79 12/18/20 05:30 109 H 21 59 L 12/18/20 05:15 110 H 20 56 L 12/18/20 05:11 109 H 20 100 12/18/20 05:10 110 H 20 43/30 L 49 L 12/18/20 05:01 111 H 20 63 L 12/18/20 05:00 111 H 20 63 L 12/18/20 04:51 112 H 24 93/74 L
[2020-12-20 06:42] LABS: Parvovirus IgG 4.1 (<0.9); Parvovirus IgM 0.1 (<0.9)
[2020-12-20 11:30] LABS: Alpha 1 Antitrypsin 292 mg/dL (83-199); Anti Nuclear Antibody Screen NEGATIVE (NEGATIVE); Ceruloplasmin 45 mg/dL (18-53); HSV Type 1 DNA Not Detected (Not Detected); HSV Type 1&2 DNA Source Whole Blood; HSV Type 2 DNA Not Detected (Not Detected); Hepatitis A Antibody IgM NON-REACTIVE (NON-REACTIVE); Hepatitis B Core Antibody IgM NON-REACTIVE (NON-REACTIVE); Smooth Muscle Antibody NEGATIVE (NEGATIVE)
== END 2020-12-18 06:14 | disposition expired | DRG 292 ==
LOC: ED 10:51 → 2S 14:50 → 1E 12-18 04:57